=== PATIENT | male | born 1930 | race Caucasian/White ===

== ENCOUNTER 2017-08-11 10:37 | Inpatient (IN) ==
[2017-08-05 18:55] LABS: Blood Urea Nitrogen 19 mg/dl (8-23)
[2017-08-05 19:15] LABS: Appearance,Urine CLEAR; Bilirubin,Urine NEG (NEG); Color,Urine YELLOW; Glucose,Urine (UA) NEGATIVE (NEG); Leukocyte Esterase,Urine NEG /uL (NEG); Nitrate,Urine NEG (NEG); Protein,Urine NEG (NEG); Specific Gravity,Urine 1.025 (1.000-1.035); Urine Blood NEG mg/dL (<0.03); Urobilinogen,Urine NEG (NEG)
[~2017-08-11 10:37] MED LIST: CELECOXIB 200 MG CAPSULE PO SCH; GABAPENTIN 100 MG CAPSULE PO SCH; ceFAZolin 1 GM VIAL IV SCH; oxyCODONE 10 MG TAB.ER.12H PO SCH
[2017-08-11] MEDS ORDERED: MIDAZOLAM 2 MG/2 ML VIAL IV ONE (14:45)
[2017-08-11] MEDS ORDERED: PROPOFOL 200 MG/20 ML VIAL IV ONE (14:45)
[2017-08-11] MEDS ORDERED: LIDOCAINE HCL/PF 100 MG/5 ML SYRINGE IV ONE (14:45)
[2017-08-11] MEDS ORDERED: SUCCINYLCHOLINE 20 MG/ML ML IV ONE (14:45)
[2017-08-11] MEDS ORDERED: DEXAMETHASONE 10 MG/ML VIAL IV ONE (14:45)
[2017-08-11] MEDS ORDERED: ONDANSETRON 4 MG/2 ML VIAL IV ONE (14:45)
[2017-08-11] MEDS ORDERED: TRANEXAMIC ACID 1,000 MG/10 ML VIAL IV ONE ×2 (14:45→16:46)
[2017-08-11] MEDS ORDERED: ONDANSETRON 4 MG/2 ML VIAL IV PRN ×2 (16:13→16:46)
[2017-08-11] MEDS ORDERED: IPRATROPIUM/ALBUTEROL 3 ML AMPUL.NEB NEB PRN (16:13)
[2017-08-11] MEDS ORDERED: ACETAMINOPHEN 1,000 MG/100 ML BOTTLE IV ONE (16:13)
[2017-08-11] MEDS ORDERED: PROMETHAZINE 25 MG/ML VIAL IV PRN (16:13)
[2017-08-11] MEDS ORDERED: MEPERIDINE 25 MG/ML SYRINGE IV PRN (16:13)
[2017-08-11] MEDS ORDERED: LACTATED RINGERS 250 ML IV PRN (16:13)
[2017-08-11] MEDS ORDERED: NALOXONE HCL 0.4 MG/ML VIAL IV PRN (16:13)
[2017-08-11] MEDS ORDERED: HYDROmorphone 2 MG/ML SYRINGE IV PRN ×2 (16:13→16:46)
[2017-08-11] MEDS ORDERED: fentaNYL 100 MCG/2 ML VIAL IV PRN (16:13)
[2017-08-11] MEDS ORDERED: MEPERIDINE 50 MG/ML SYRINGE IM PRN (16:13)
[2017-08-11] MEDS ORDERED: PROMETHAZINE 25 MG/ML VIAL IM PRN (16:13)
[2017-08-11] MEDS ORDERED: ePHEDrine 50 MG/ML AMPUL IV PRN (16:13)
[2017-08-11] MEDS ORDERED: FLUMAZENIL 0.1 MG/ML ML IV PRN (16:13)
[2017-08-11] MEDS ORDERED: BENZOCAINE/MENTHOL 1 LOZENGE PO PRN ×2 (16:13→16:46)
[2017-08-11] MEDS ORDERED: diphenhydrAMINE 50 MG/ML VIAL IV PRN (16:13)
[2017-08-11] MEDS ORDERED: LACTATED RINGERS 1,000 ML IV SCH (16:15)
[2017-08-11] MEDS ORDERED: BISACODYL 10 MG SUPP.RECT PR PRN (16:46)
[2017-08-11] MEDS ORDERED: ONDANSETRON ODT 4 MG TABLET SL PRN (16:46)
[2017-08-11] MEDS ORDERED: KETOROLAC 15 MG/ML VIAL IV PRN (16:46)
[2017-08-11] MEDS ORDERED: FLEETS ADULT ENEMA PR PRN (16:46)
--- NOTE | 2017-08-11 16:46 | Brief Operative Note ---
Date of procedure: 08/11/17 Pre-op diagnosis: left hip avn, oa Post-op diagnosis: same Procedure: left total hip arthroplasty Grafts/Implants: Yes Anesthesia: spinal Complications: none Surgeon: Sergio Gillis Carousel Operator: Edith Medina Estimated blood loss (cc): 150 Specimens Removed/Pathology: other (fresh frozen x 2) Condition: stable Disposition: PACU
[2017-08-11] MEDS ORDERED: GENTAMICIN SULFATE 800 MG/20 ML VIAL IR ONE (16:59)
--- NOTE | 2017-08-11 17:59 | XRay Report ---
HISTORY: Reason for Exam:Post-Op Total Hip FINDINGS: There is a well-positioned left total hip prosthesis. No fracture is present. Mild osteoarthritis is present in the right hip. There is moderate arthritis throughout the visualized portion of the lumbar spine. IMPRESSION: Well-positioned left hip prosthesis Interpreted and Authenticated by: Bret Oshea 08/11/17
[2017-08-11] MEDS: 0.9 % SODIUM CHLORIDE 1,000 ML IV SCH (19:32)
[2017-08-11] MEDS: metFORMIN 500 MG TABLET PO SCH ×2 (19:33→20:42)
[2017-08-11] MEDS: DOCUSATE SODIUM 100 MG CAPSULE PO SCH (20:42)
[2017-08-11] MEDS: ATORVASTATIN 20 MG TABLET PO SCH (20:42)
[2017-08-11] MEDS: SENNOSIDES 1 TABLET PO SCH (20:42)
[2017-08-11] MEDS: ASPIRIN 325 MG ENTERIC COATED TABLET PO SCH (20:42)
[2017-08-11] MEDS: GABAPENTIN 100 MG CAPSULE PO SCH (20:44)
[2017-08-11] MEDS: 0.9 % SODIUM CHLORIDE 10 ML SYRINGE IV SCH (20:47)
[2017-08-11] MEDS: ceFAZolin 1 GM VIAL IV SCH (22:36)
[2017-08-11] MEDS: METOPROLOL SUCCINATE 25 MG TAB.XL.24H PO SCH (22:42)
[2017-08-12] MEDS: 0.9 % SODIUM CHLORIDE 10 ML SYRINGE IV SCH ×3 (04:37→20:48)
[2017-08-12] MEDS: 0.9 % SODIUM CHLORIDE 1,000 ML IV SCH ×3 (05:05→23:45)
[2017-08-12] MEDS: ceFAZolin 1 GM VIAL IV SCH (07:06)
--- NOTE | 2017-08-12 07:17 | Orthopedic Progress Note ---
Subjective Patient information: Note initiated : 08/12/17 at 7:15 am Service Date, if different from initiated Date: [] Patient: Buddy Marcus 87 y/o M admitted on 08/11/17 for Arthroplasty Hip Total - Left. Chief Complaint: [] Interval history: doing well. pain better. weakness noted Objective Vital signs: Vital Signs Temp Pulse Resp BP BP Pulse Ox 08/12/17 04:00 98.0 F 81 20 132/72 95 08/12/17 00:00 97.3 F 80 20 114/67 97 08/11/17 23:09 95 08/11/17 20:34 79 102/62 95 08/11/17 19:49 86 98/66 94 08/11/17 19:40 98 08/11/17 19:18 68 107/62 99 08/11/17 18:48 82 107/64 97 08/11/17 18:33 74 127/74 97 08/11/17 18:18 78 111/57 95 08/11/17 18:03 83 121/66 89 L 08/11/17 17:55 97.6 F 83 16 106/63 95 08/11/17 17:46 95 H 20 107/59 95 08/11/17 17:41 85 17 111/61 95 08/11/17 17:36 86 17 101/57 96 08/11/17 17:31 92 H 18 104/59 96 08/11/17 17:26 90 17 101/56 97 08/11/17 17:21 91 H 18 103/62 97 08/11/17 17:16 97.6 F 91 H 12 90/51 97 08/11/17 12:00 98.1 F 16 169/73 95 Intake and Output 08/11/17 08/12/17 08/12/17 21:59 05:59 13:59 Intake Total 2620 / 2620 1005 / 1005 640 / 640 Output Total 200 / 200 150 / 150 Balance 2420 / 2420 855 / 855 640 / 640 Intake: IV 1700 / 1700 955 / 955 Sodium Chloride 0.9% 1,000 ml @ 955 / 955 100 mls/hr IV .Q10H [facility] Rx#: [id number] Oral 920 / 920 50 / 50 640 / 640 Output: Void Amount 150 / 150 Estimated Blood Loss 200 / 200 Other: Meal Nourishment/Supplement Percent of Meal Consumed 100% Feeding Ability Assist with Tray Set Up Weight 201 lb 8 oz Intake & Output: Intake & Output 08/11/17 08/12/17 08/12/17 21:59 05:59 13:59 Intake Total 2620 / 2620 1005 / 1005 640 / 640 Output Total 200 / 200 150 / 150 Balance 2420 / 2420 855 / 855 640 / 640 Weight 201 lb 8 oz Intake: IV 1700 / 1700 955 / 955 Sodium Chloride 0.9% 1,000 ml @ 955 / 955 100 mls/hr IV .Q10H [facility] Rx#: [id number] Oral 920 / 920 50 / 50 640 / 640 Output: Void Amount 150 / 150 Estimated Blood Loss 200 / 200 Other: Meal Nourishment/Supplement Percent of Meal Consumed 100% Feeding Ability Assist with Tray Set Up Incision: Yes healing Incision clean and dry: Yes Dressing: Yes clean, Yes dry, Yes intact Weight bearing status: full Neurological exam IM: Yes abnormal gait, Yes alert, Yes oriented X3, Yes neurovascular intact Extremities exam IM: No calf tenderness, Yes Foot pink and warm, Yes neurovascular intact - Labs CBC & BMP: 08/12/17 04:54 08/05/17 15:20 Labs: 08/12/17 04:54 Hgb 12.2 L Hct 36.6 L Assessment and Plan (1) Avascular necrosis of bone of hip pod 1 s/p left charles wbat posterior hip precautions pain control pt home vs rehab depending on how he progresses Status: Acute
--- NOTE | 2017-08-12 07:45 | Operative Note ---
DATE OF OPERATION: 08/11/2017 PREOPERATIVE DIAGNOSIS: Avascular necrosis, left hip. POSTOPERATIVE DIAGNOSIS: Avascular necrosis, left hip. PROCEDURE: Left total hip arthroplasty. SURGEON: Radha Gillis M.D. CDL PROGRAM COORDINATOR SURGEON: Edith Medina PA-C ANESTHESIA: Spinal with LMA assist. ESTIMATED BLOOD LOSS: 150 mL. COMPLICATIONS: None noted. SPECIMENS REMOVED: Frozen x2 with less than 1 WBC/HPF. DRAINS: None. IMPLANTS: DePuy Orma Gription acetabular shell 58 mm, DePuy [place] hole eliminator PS, DePuy Orma cancellous bone screw 6.5 x 30, DePuy AltrX polyethylene acetabular liner lipped 38 x 56, DePuy Tri-Lock BPS femoral stem size 6 high, DePuy Biolox Delta ceramic femoral head +12 36 mm diameter. INDICATIONS: The patient has had worsening pain in the hip that has failed conservative treatment. Radiographs have confirmed avascular necrosis with complete dissolution of the femoral head. After a long discussion about treatment options, the patient elected to proceed with a hip arthroplasty. The risks and benefits were discussed with the patient in detail including, but not limited to, the risks of anesthesia, problems with the heart or lungs related to anesthesia, infection, compromise or injury to the nerves and blood vessels, deep venous thrombosis, pulmonary embolism, pneumonia, continued pain after surgery, worsening pain or symptoms after surgery, swelling, loss of motion, instability, leg length discrepancy, and need for repeat surgery. DESCRIPTION OF PROCEDURE: The patient was seen in pre-anesthesia waiting room where all questions were answered and the correct side and site were identified and marked. The patient was then brought to the operating room and administered the anesthetic and given preoperative antibiotics. A time-out was then called. The patient was placed in the lateral decubitus position with all prominences well-padded using the Rainer frame and the extremity was prepped and draped in the usual sterile fashion. Anesthesia; gave the patient 1 gm of tranexamic acid via an intravenous route. A standard posterior approach was made. We dissected through the skin and subcutaneous tissue to the deep fascia. The deep fascia was split in line with the incision and a Charnley retractor was placed. We exposed, tagged, and incised the short external rotators and piriformis tendon and retracted them posteriorly to help protect the sciatic nerve which was palpated throughout the case. We then performed a T-capsulotomy and tagged the capsule edges. Prior to dislocating the hip, we set a length and offset gauge from a Steinmann pin in the iliac wing to a de on the greater trochanter. The hip was then dislocated and a femoral neck osteotomy was performed to the presurgical templated level off the lesser trochanter. The head was removed and sized. It was removed in pieces as there was severe avascular necrosis. I took two frozen specimens and sent them to the pathologist, which demonstrated less than 1 WBC/HPF, and it did not appear to be grossly infected so we proceeded with the surgical intervention. We next turned our attention to the acetabulum. Retractors were placed for optimal visualization. A complete labral excision was performed. The capsule was preserved for later closure. We began reaming using anatomic landmarks with the DePuy Orma acetabular system. We medialized the cup and reamed up to provide good fill and approximately 20 degrees of anteversion and 45 degrees of abduction, we impacted the DePuy Orma cup and placed a cancellous screw in the posterior-superior quadrant. Osteophytes were removed from around the shell. We placed the trial liner and turned our attention to the femur. We placed retractors for visualization, internally rotated the femur, and established intramedullary access. The femoral axis was lateralized with the box osteotome and then reamed up in a standard fashion. We broached using the DePuy [place] stem to a stable platform medial, lateral, and rotationally with the appropriate version. We then performed a calcar reaming off the broach. Trials were then placed and optimized for leg length and stability. We used the leg length and offset guide to confirm our trials. Best stability, length, and offset characteristics were obtained with these sizes. We removed all trials and impacted the polyethylene acetabular liner in a standard fashion after a thorough irrigation. We then impacted the femoral stem to its broached location using a fourth-generation cementing technique and placed the head. Final reduction was performed. Again, good stability, leg length, and offset characteristics were noted. We irrigated with three liters of antibiotic saline. We closed the capsule with #2 FiberWire. We closed the fascia with a combination of looped #0 Maxon and #0 Vicryl. We closed the subcutaneous tissue and skin in layers out to monika in the skin. A sterile pressure dressing and abduction wedge were applied. All needle and sponge counts were correct. The patient was transferred to the recovery room in stable condition. MARICRUZ:mary Job ID: [id number] Doc ID: [id number] Radha Gillis MD
[2017-08-12] MEDS: metFORMIN 500 MG TABLET PO SCH ×2 (08:18→17:39)
[2017-08-12] MEDS: ASPIRIN 325 MG ENTERIC COATED TABLET PO SCH ×2 (09:10→20:48)
[2017-08-12] MEDS: ALLOPURINOL 300 MG TABLET PO SCH (09:10)
[2017-08-12] MEDS: METOPROLOL SUCCINATE 25 MG TAB.XL.24H PO SCH ×2 (09:10→20:48)
[2017-08-12] MEDS: DOCUSATE SODIUM 100 MG CAPSULE PO SCH ×2 (09:10→20:47)
[2017-08-12] MEDS: GABAPENTIN 100 MG CAPSULE PO SCH ×2 (09:11→20:48)
--- NOTE | 2017-08-12 13:58 | Surgical Pathology Report ---
HISTOLOGY SPECIMEN MICROSCOPIC DIAGNOSIS SPECIMEN A - SOFT TISSUE, LEFT HIP CAPSULE, EXCISION: -- FIBROTIC SOFT TISSUE WITH CHRONIC INFLAMMATION. -- NO NEUTROPHILIC INFLAMMATION IDENTIFIED. SPECIMEN B - SOFT TISSUE, FEMORAL HEAD, EXCISION: -- FIBROADIPOSE TISSUE WITH MINIMAL CHRONIC INFLAMMATION. -- NO NEUTROPHILIC INFLAMMATION IDENTIFIED. (DMT:paulino) INTRAOPERATIVE CONSULTATION FROZEN SECTION DIAGNOSES (Performed at [place], [place]) FSA - SOFT TISSUE, CAPSULE, LEFT HIP, EXCISION: -- LESS THAN ONE NEUTROPHIL/hpf. FSB - SOFT TISSUE, FEMORAL HEAD, LEFT HIP, EXCISION: -- LESS THAN ONE NEUTROPHIL/hpf. (DMT:perfecto) PROCEDURAL IMPRESSION Left bilateral primary osteoarthritis of hip; osteonecrosis left hip. GROSS DESCRIPTION Specimen A: Received fresh for frozen section consultation labeled capsule left hip, is a 2.2 x 1.5 x 0.5 cm zuniga-pink soft tissue fragment. The fragment is serially sectioned and entirely submitted for frozen section consultation and resubmitted as FSA. Specimen B: Received fresh for frozen section consultation labeled femoral head left hip, is a 1.3 x 0.4 x 0.4 cm aggregate of soft tissue with a minimal amount of bone. The bone is removed and the soft tissue is entirely submitted for frozen section consultation and resubmitted as FSB. (DMT:paulino) Electronically Signed by: Paul Martinez M.D.
[2017-08-12] MEDS: SENNOSIDES 1 TABLET PO SCH (20:47)
[2017-08-12] MEDS: ATORVASTATIN 20 MG TABLET PO SCH (20:48)
[2017-08-12] MEDS: METHOCARBAMOL 750 MG TABLET PO PRN (20:48)
--- NOTE | 2017-08-12 21:29 | Internal Medicine Consult Note ---
Medical - CN: HPI - Data of Consult Patient: new to practice Consult date: 08/12/17 Requesting Physician: Sergio Gillis Primary Care Provider: Prasanna Cerna Family Provider: Prasanna Cerna - Consult Narrative History of present illness: Mr. Marcus is a 87 year old M I was asked to see this patient this evening by Dr. Gillis, regarding borderline O2 saturations and low urine output. Patient is status post total hip replacement yesterday. This surgery went well. It looks like he is about 5 L ahead on fluid. The patient notes he has been feeling fine until today. Today he noted increased dyspnea with exertion during physical therapy, and consents that he is wheezing. He says he has had a cough for about a week, and just in the last couple of days started to cough up yellowish phlegm. Otherwise, he denies fever chills, headaches or dizziness, new eye or ear symptoms, sore throat, swollen glands. He denies chest pain or palpitations, abdominal pain, nausea or vomiting, diarrhea or constipation, dysuria. Past medical history: Avascular necrosis of the hip Colon cancer Type 2 diabetes Gout Coronary artery disease, status post DE and 2 stents 1999 62,007 History of atrial fibrillation hyperlipidemia Diabetic peripheral neuropathy Past surgical history cardiac stents, Right knee arthroscopy, Shoulder surgery Home medications: Allopurinol 300 mg daily Aspirin 81 mg daily Lipitor 20 mg daily Gabapentin 100 mg twice daily [place] 5/325 1-2 every 6 hours as needed Metformin 1000 mg p.o. twice daily Metoprolol succinate 25 mg p.o. twice daily Allergies: No known drug allergies Social history: The patient lives alone. He says his son lives nearby. He smoked from the age of 14 until 43, and then quit. He does not use alcohol or drugs. Family history: Patient believes his father with a brain aneurysm. He cannot recall either his mother's or his siblings' health. Cardiology records indicate family history of Alzheimer's disease, suicide, hyperlipidemia, coronary disease, stroke CC: Sergio Gillis Medical - CN: Meds Home Medications Medication Instructions Recorded Confirmed Type Allopurinol [Zyloprim] 300 mg PO DAILY 08/05/17 08/11/17 History Aspirin [Ecotrin] 81 mg PO DAILY 08/05/17 08/11/17 History Atorvastatin [Lipitor] 20 mg PO DAILY 08/05/17 08/11/17 History Gabapentin [Neurontin] 100 mg PO BID 08/05/17 08/11/17 History HYDROcodone/APAP 5/325MG [[place] 1 - 2 tab PO Q6HP PRN 08/05/17 08/11/17 History 5/325Mg] Metoprolol Succinate 25 mg PO BID 08/05/17 08/11/17 History metFORMIN [Glucophage] 1,000 mg PO BIDCC 08/05/17 08/11/17 History Allergies Allergy/AdvReac Type Severity Reaction Status Date / Time No Known Drug Allergies Allergy Verified 08/11/17 11:49 Medical - CN: Exam - Constitutional Vitals: Temp Pulse Resp BP Pulse Ox 98.0 F 90 18 138/70 97 08/12/17 16:00 08/12/17 16:00 08/12/17 16:00 08/12/17 16:00 08/12/17 16:00 On exam, he is a well-developed well-nourished elderly man in no acute distress. Head: Normocephalic, atraumatic. Eyes: PERRLA, EOMI, anicteric. TMs and canals are clear. Pharynx is clear. He has full upper and lower plates. Neck appears supple, without obvious JVD, thyromegaly, bruits, lymph nodes. Cardiac exam shows regular rate and rhythm with normal S1 and S2. I do not appreciate murmurs, rubs, gallops. Lungs: He has diffuse soft expiratory wheezes heard throughout all lung estrada. I do not appreciate definite crackles or rhonchi. Abdomen is soft and nontender with no obvious masses. Bowel sounds are active. Extremities: Show perhaps a trace edema at the ankles. No cyanosis or clubbing is noted. Neurologic exam: Is grossly nonfocal. Medical - CN: Result - Labs CBC & Chem 7: 08/13/17 05:04 08/13/17 05:04 Labs: Short CBC 08/12/17 Range/Units 04:54 Hgb 12.2 L (13.5-16.5) g/dL Hct 36.6 L (41.0-55.0) % August 12: Chest x-ray: Shows mild cardiomegaly, and evidence of pulmonary vascular congestion. There is also evidence of bilateral rotator cuff tears. EKG: Shows normal sinus rhythm at a rate of 90, incomplete left bundle branch block. No significant change from August 11, 2017 . CBC: White blood cell count 8000, hemoglobin 11.4, hematocrit 34, platelets 362, 000. D-dimer is elevated at 1.38 next Chemistry panel: Sodium is low at 126, potassium 4.4, chloride 92, bicarb 21, anion gap 13, BUN 23, creatinine 0.9, glucose 143 Phosphorus is low at 2.1, magnesium low at 1.5, total protein is low at 5.8, albumin low at 2.8 BNP is elevated at 2694 August 11: EKG: Shows normal sinus rhythm at a rate of 90, left axis deviation, left anterior fascicular block. No significant change from August 05, 2017. Hematocrit: 45 August 05, 2017: Chemistry panel: Sodium 129, potassium 4.7, chloride 90, CO2 21, anion gap 18, glucose 119 Urinalysis: 5 ketones, otherwise normal : Chest x-ray: Reported as showing moderate cardiomegaly. No acute changes. Next Hip x-ray: Showed marked collapse and deformity of the left femoral head, possible avascular necrosis. August 04: CBC: White blood cell count 7000, hemoglobin 13, hematocrit 38, platelets 342, 000 Medical - CN: A/P (1) Dyspnea Status: Acute (2) Coronary artery disease Status: Chronic (3) History of coronary artery stent placement Status: Chronic (4) History of atrial fibrillation Status: Chronic (5) Type 2 diabetes mellitus Status: Chronic (6) Hyperlipidemia Status: Chronic - Narrative A/P Narrative: #1. Cardiopulmonary. Patient has dyspnea since his surgery. He is about 5 L ahead on fluids. I suspect his main problem is volume overload. However, he is also at risk for CHF, and may have a respiratory infection as well. He is also at risk for recurrent coronary events. -He was given IV Lasix empirically. -Albuterol nebs as needed. -EKG appears unchanged. Troponin is normal. -BNP is elevated, consistent with probable underlying CHF. D-dimer is elevated , but that would be expected in the setting of recent surgery. - -Continue aspirin, Lipitor, metoprolol. -Discontinue Toradol, as this is a high risk medication for him. History of atrial fibrillation. EKGs here which seemed to show sinus rhythm. -Chads 2 vascular score is 3, and cardiology did recommend anticoagulation previously, but patient was reluctant. Continue aspirin for now. He should follow-up with his critical care nurse, as this should probably be reconsidered. 2. Type 2 diabetes. -Continue gabapentin for peripheral neuropathy. -Continue metformin, Accu-Cheks, sliding scale insulin. 3. Hyperlipidemia. 4. CODE STATUS: Full code. 5. DVT prophylaxis: Patient is on high-dose aspirin twice daily, plus early ambulation. Cherelle's visit took approximately 55 minutes, to review his old records, interview and examine him, order and review test, and write orders.
[2017-08-12] MEDS ORDERED: FUROSEMIDE 20 MG/2 ML VIAL IV ONE (21:33)
[2017-08-12] MEDS ORDERED: ALBUTEROL SULFATE 2.5 MG/3 ML NEBULIZER NEB PRN (21:56)
[2017-08-12] MEDS ORDERED: ALBUTEROL SULFATE 2.5 MG/3 ML NEBULIZER NEB ONE (21:56)
[2017-08-12 22:35] LABS: Basophils # (Auto) 0 K/mcL (0.0-0.3); Basophils % (Auto) 0.3 % (0.0-2.0); Eosinophils # (Auto) 0.1 K/mcL (0.0-0.7); Eosinophils % (Auto) 1.3 % (0.0-7.0); Granulocytes % (Auto) 80.2 % (38.0-78.0); Lymphocytes # (Auto) 0.8 K/mcL (1.5-4.8); Lymphocytes % (Auto) 9.8 % (15.5-49.0); Mean Corpuscular HGB Conc 32.9 g/dL (31.0-36.0); Mean Corpuscular Hemoglobin 30.9 pg (26.0-34.0); Monocytes # (Auto) 0.7 K/mcL (0.1-0.9); Monocytes % (Auto) 8.4 % (1.0-12.0); Platelet Count 362 K/mcL (140-440); RBC 3.69 M/mcL (4.50-5.90); Red Cell Distribution Width 12.8 % (11.5-14.5)
[2017-08-12 23:00] LABS: ALT/SGPT 9 U/l (0-40); Albumin 2.8 gm/dL (3.2-5.2); Albumin/Globulin Ratio 0.9 (1.0-2.3); Alkaline Phosphatase 87 U/L (39-117); Bilirubin,Direct < 0.2 mg/dL (0.0-0.3); Blood Urea Nitrogen 23 mg/dl (8-23); Gamma Glutamyl Transpeptidase 24 U/L (8-61); Magnesium 1.5 mg/dL (1.6-2.5); Uric Acid 4.3 mg/dL (2.5-8.0)
[2017-08-13] MEDS ORDERED: MAGNESIUM SULFATE 24.36 MEQ in DEXTROSE 5% IN WATER 50 ML IV ONE (01:13)
[2017-08-13] MEDS ORDERED: MAGNESIUM SULFATE 8.12 MEQ/2 ML VIAL ONE (02:25)
[2017-08-13] MEDS: 0.9 % SODIUM CHLORIDE 10 ML SYRINGE IV SCH ×4 (02:37→20:03)
[2017-08-13] MEDS: HYDROcodone/APAP 10/325MG TABLET PO PRN ×3 (02:40→12:17)
--- NOTE | 2017-08-13 06:03 | Orthopedic Progress Note ---
Subjective Patient information: Note initiated : 08/13/17 at 6:01 am Service Date, if different from initiated Date: [] Patient: Buddy Marcus 87 y/o M admitted on 08/11/17 for Arthroplasty Hip Total - Left. Chief Complaint: [POD #1 s/p left NASRA Patient is POD #1 s/p left NASRA. He is doing very well this morning and denies significant pain in his hip. He was having a moist cough which was addressed by the hospitalist with Ban. His O2 sats were monitored over night and have been stable for the duration. He was also having low urine output which has since reversed. He reports improvement in his cough. He denies chest pain, shortness of breath, calf pain, numbness, tingling or weakness in bilateral lower extremities. He has no questions or concerns this morning.] Objective Vital signs: Vital Signs Temp Pulse Pulse Pulse Resp BP Pulse Ox 08/13/17 03:09 98.2 F 82 16 122/73 94 08/13/17 00:00 98.2 F 87 16 121/69 96 08/12/17 23:35 83 18 08/12/17 20:00 98.0 F 83 16 113/67 94 08/12/17 16:00 98.0 F 90 18 138/70 97 08/12/17 12:00 97.7 F 103 H 20 134/68 97 08/12/17 11:05 98.5 F 80 16 112/80 95 08/12/17 07:25 74 16 95 08/12/17 07:23 98.1 F 71 74 16 122/72 95 Intake and Output 08/12/17 08/13/17 08/13/17 21:59 05:59 13:59 Intake Total 2148 / 2148 120 / 120 Output Total 975 / 975 2250 / 2250 Balance 1173 / 1173 -2130 / -2130 Intake: IV 1348 / 1348 Sodium Chloride 0.9% 1,000 ml @ 1348 / 1348 100 mls/hr IV .Q10H [facility] Rx#: [id number] Oral 800 / 800 120 / 120 Output: Void Amount 975 / 975 2250 / 2250 Other: Meal Dinner Nourishment/Supplement Percent of Meal Consumed 50% 100% Feeding Ability Assist with Tray Set Up Independent Weight 224 lb 220 lb Intake & Output: Intake & Output 08/12/17 08/13/17 08/13/17 21:59 05:59 13:59 Intake Total 2148 / 2148 120 / 120 Output Total 975 / 975 2250 / 2250 Balance 1173 / 1173 -2130 / -2130 Weight 224 lb 220 lb Intake: IV 1348 / 1348 Sodium Chloride 0.9% 1,000 ml @ 1348 / 1348 100 mls/hr IV .Q10H [facility] Rx#: [id number] Oral 800 / 800 120 / 120 Output: Void Amount 975 / 975 2250 / 2250 Other: Meal Dinner Nourishment/Supplement Percent of Meal Consumed 50% 100% Feeding Ability Assist with Tray Set Up Independent Incision: Yes healing, Yes clean and dry Incision clean and dry: Yes Dressing: Yes clean, Yes dry, Yes intact Weight bearing status: as tolerated Range of motion: full AROM b/l knees, ankles, toes in extension and flexion Neurological exam IM: Yes alert, Yes oriented X3, Yes neurovascular intact Extremities exam IM: No calf tenderness, Yes full ROM, Yes normal capillary refill, Yes normal inspection, No Kiara's sign, Yes Foot pink and warm, Yes neurovascular intact - Periperhal Pulses Peripheral pulses: 2+: dorsalis pedis (L), dorsalis pedis (R), posterior tibialis (L), posterior tibialis (R) - Labs CBC & BMP: 08/12/17 21:50 08/12/17 21:50 Labs: Orthopedic Labs 08/12/17 21:50 D-Dimer 1.38 H 08/13/17 08/12/17 08/12/17 05:04 21:50 04:54 Hgb Pending 11.4 L 12.2 L Hct Pending 34.7 L 36.6 L Assessment and Plan (1) Avascular necrosis of bone of hip Assessment: POD #1 s/p left NASRA Plan: -Pain control -continue DVT prophylaxis with ASA -continue diuresis/cardiopulm management per hospitalist -PT/OT in hospital -WBAT with assistive device -dressing change today with gauze/metaphor over Dermabond -d/c planning to [place] swing bed Thursday08/13/2017 pending hospitalist sign off Status: Acute
[2017-08-13 06:38] LABS: Basophils # (Auto) 0 K/mcL (0.0-0.3); Basophils % (Auto) 0.2 % (0.0-2.0); Eosinophils # (Auto) 0.1 K/mcL (0.0-0.7); Eosinophils % (Auto) 1.4 % (0.0-7.0); Granulocytes % (Auto) 82.7 % (38.0-78.0); Lymphocytes # (Auto) 0.8 K/mcL (1.5-4.8); Lymphocytes % (Auto) 8.5 % (15.5-49.0); Mean Cell Volume 96.7 fL (80.0-100.0); Mean Corpuscular Hemoglobin 31.9 pg (26.0-34.0); Monocytes # (Auto) 0.6 K/mcL (0.1-0.9); Monocytes % (Auto) 7.2 % (1.0-12.0); Platelet Count 323 K/mcL (140-440); RBC 3.63 M/mcL (4.50-5.90); Red Cell Distribution Width 13.5 % (11.5-14.5)
[2017-08-13 06:58] LABS: ALT/SGPT 8 U/l (0-40); Alkaline Phosphatase 83 U/L (39-117); Bilirubin,Direct < 0.2 mg/dL (0.0-0.3); Blood Urea Nitrogen 22 mg/dl (8-23); Gamma Glutamyl Transpeptidase 27 U/L (8-61); Magnesium 2.1 mg/dL (1.6-2.5); Uric Acid 4.3 mg/dL (2.5-8.0)
--- NOTE | 2017-08-13 07:50 | XRay Report ---
HISTORY: Reason for Exam:post op SOB FINDINGS: Heart is mildly enlarged and has increased in size since 11/30/06. In addition there are now increased interstitial lung markings bilaterally and prominence of the central hilar vessels. No consolidating infiltrate is present. Lung volumes are normal. No pleural effusion has developed. Distal ends of both clavicles have been resected. Humeral heads are subluxed superiorly which is indirect evidence of bilateral rotator cuff tears. IMPRESSION: Cardiomegaly with pulmonary vascular congestion Interpreted and Authenticated by: Bret Oshea 08/13/17
[2017-08-13] MEDS: GABAPENTIN 100 MG CAPSULE PO SCH ×2 (08:25→20:03)
[2017-08-13] MEDS: ALLOPURINOL 300 MG TABLET PO SCH (08:25)
[2017-08-13] MEDS: metFORMIN 500 MG TABLET PO SCH ×2 (08:25→17:20)
[2017-08-13] MEDS: 0.9 % SODIUM CHLORIDE 1,000 ML IV SCH (08:26)
[2017-08-13] MEDS: METOPROLOL SUCCINATE 25 MG TAB.XL.24H PO SCH ×2 (08:26→20:02)
[2017-08-13] MEDS: DOCUSATE SODIUM 100 MG CAPSULE PO SCH ×2 (08:26→20:02)
[2017-08-13] MEDS: ASPIRIN 325 MG ENTERIC COATED TABLET PO SCH ×2 (08:26→20:02)
[2017-08-13] MEDS: POLYETHYLENE GLYCOL 3350 17 GM PACKET PO PRN (08:29)
--- NOTE | 2017-08-13 11:00 | Internal Med Progress Note ---
Medical - PN: Subj Patient information: Note initiated : 08/13/17 at 11:00 am Service Date, if different from initiated Date: [] Patient: Buddy Marcus 87 y/o M admitted on 08/11/17 for Arthroplasty Hip Total - Left. Chief Complaint: [] Interval history: August 12, 2017: History of present illness: Mr. Marcus is a 87 year old M I was asked to see this patient this evening by Dr. Gillis, regarding borderline O2 saturations and low urine output. Patient is status post total hip replacement yesterday. This surgery went well. It looks like he is about 5 L ahead on fluid. The patient notes he has been feeling fine until today. Today he noted increased dyspnea with exertion during physical therapy, and consents that he is wheezing. He says he has had a cough for about a week, and just in the last couple of days started to cough up yellowish phlegm. Otherwise, he denies fever chills, headaches or dizziness, new eye or ear symptoms, sore throat, swollen glands. He denies chest pain or palpitations, abdominal pain, nausea or vomiting, diarrhea or constipation, dysuria. August 13: Patient had dyspnea yesterday, associated with low O2 saturations and low urine output. He was given IV Lasix, and experienced a brisk diuresis. Preliminary workup showed no evidence of acute ID. Working diagnosis is acute volume overload with underlying CHF. I did order echocardiogram, which does show systolic dysfunction with ejection fraction of approximately 40%. Urine output is slowing down again today. Patient is still about 3900 mL ahead on fluids. Today, he says he is feeling much better. He has much less dyspnea with exertion. He does note that he has had some chronic dyspnea with exertion at home, to a much milder degree, for the last couple of years. He otherwise denies fever or chills, dizziness, chest pain or palpitations, GI or symptoms. - Constitutional Vitals: Vital Signs Temp Pulse Resp BP Pulse Ox 98.2 F 82 16 128/76 94 08/13/17 07:55 08/13/17 03:09 08/13/17 07:55 08/13/17 07:55 08/13/17 07:55 Period Temp Pulse Resp BP Sys/Berg Pulse Ox Last 24 Hr 97.7 F-98.5 F 80-103 16-20 112-138/67-80 94-97 Intake and Output 08/12/17 08/13/17 08/13/17 21:59 05:59 13:59 Intake Total 2148 / 2148 120 / 120 600 / 600 Output Total 975 / 975 2250 / 2250 175 / 175 Balance 1173 / 1173 -2130 / -2130 425 / 425 Weight 224 lb 220 lb Intake & Output: Intake & Output 08/12/17 08/13/17 08/13/17 21:59 05:59 13:59 Intake Total 2148 / 2148 120 / 120 600 / 600 Output Total 975 / 975 2250 / 2250 175 / 175 Balance 1173 / 1173 -2130 / -2130 425 / 425 Weight 224 lb 220 lb Intake: IV 1348 / 1348 Sodium Chloride 0.9% 1,000 ml @ 1348 / 1348 100 mls/hr IV .Q10H JUAN F Rx#: [id number] Oral 800 / 800 120 / 120 600 / 600 Output: Void Amount 975 / 975 2250 / 2250 175 / 175 Other: Meal Dinner Nourishment/Supplement Breakfast Percent of Meal Consumed 50% 100% 100% Feeding Ability Assist with Tray Set Up Independent On exam, he is sitting up in a chair, in no acute distress. Neck is supple without obvious JVD. Cardiac exam shows regular rate and rhythm. Lungs are fairly clear to auscultation. Abdomen is soft and nontender. Extremities show only trace edema. Neurologic exam: Is grossly nonfocal. Medical - PN: Obj Da - Labs CBC & Chem 7: 08/13/17 05:04 08/13/17 05:04 Labs: Abnormal Lab Results 08/13/17 08/13/17 08/12/17 05:04 05:04 21:50 RBC 3.63 L Hgb 11.6 L Hct 35.1 L Gran % 82.7 H Lymph % (Auto) 8.5 L Lymph # (Auto) 0.8 L D-Dimer POC Sodium Sodium 129 L 126 L Chloride 94 L 92 L Carbon Dioxide 21 L Glucose 147 H 143 H POC Glucose Phosphorus 2.4 L 2.1 L Magnesium 1.5 L NT-Pro-B Natriuret Pep 2694.0 H Total Protein 5.8 L Albumin 3.0 L 2.8 L Albumin/Globulin Ratio 0.9 L 08/12/17 08/12/17 08/12/17 21:50 21:50 04:54 RBC 3.69 L Hgb 11.4 L 12.2 L Hct 34.7 L 36.6 L Gran % 80.2 H Lymph % (Auto) 9.8 L Lymph # (Auto) 0.8 L D-Dimer 1.38 H POC Sodium Sodium Chloride Carbon Dioxide Glucose POC Glucose Phosphorus Magnesium NT-Pro-B Natriuret Pep Total Protein Albumin Albumin/Globulin Ratio 08/11/17 11:15 RBC Hgb Hct Gran % Lymph % (Auto) Lymph # (Auto) D-Dimer POC Sodium 132 L Sodium Chloride Carbon Dioxide Glucose POC Glucose 147 H Phosphorus Magnesium NT-Pro-B Natriuret Pep Total Protein Albumin Albumin/Globulin Ratio August 13: Echocardiogram: Left ventricle shows LVH and mild dilation. Systolic function is decreased with ejection fraction of 35-40%. Grade 2 diastolic dysfunction is also seen. Mild biatrial enlargement. Moderate aortic valve sclerosis. August 12: Chest x-ray: Shows mild cardiomegaly, and evidence of pulmonary vascular congestion. There is also evidence of bilateral rotator cuff tears. EKG: Shows normal sinus rhythm at a rate of 90, incomplete left bundle branch block. No significant change from August 11, 2017 . CBC: White blood cell count 8000, hemoglobin 11.4, hematocrit 34, platelets 362, 000. D-dimer is elevated at 1.38 Troponin: Normal at 0.02 Chemistry panel: Sodium is low at 126, potassium 4.4, chloride 92, bicarb 21, anion gap 13, BUN 23, creatinine 0.9, glucose 143 Phosphorus is low at 2.1, magnesium low at 1.5, total protein is low at 5.8, albumin low at 2.8 BNP is elevated at 2694 August 11: EKG: Shows normal sinus rhythm at a rate of 90, left axis deviation, left anterior fascicular block. No significant change from August 05, 2017. Hematocrit: 45 August 05, 2017: Chemistry panel: Sodium 129, potassium 4.7, chloride 90, CO2 21, anion gap 18, glucose 119 Urinalysis: 5 ketones, otherwise normal : Chest x-ray: Reported as showing moderate cardiomegaly. No acute changes. Next Hip x-ray: Showed marked collapse and deformity of the left femoral head, possible avascular necrosis. August 04: CBC: White blood cell count 7000, hemoglobin 13, hematocrit 38, platelets 342, 000 Meds: Medications Hydrocodone Bitart/Acetaminophen ([place] 10/325mg) 0 tab PO Q4HP PRN PRN Reason: PAIN LEVEL 3-6 Last Admin: 08/13/17 08:31 Dose: 1 tab Albuterol Sulfate (Ventolin) 2.5 mg NEB Q4HP PRN PRN Reason: Shortness Of Breath Allopurinol (Zylopriim) 300 mg PO DAILY [facility] Last Admin: 08/13/17 08:25 Dose: 300 mg Aspirin (Ecotrin) 325 mg PO BID [facility] Last Admin: 08/13/17 08:26 Dose: 325 mg Atorvastatin Calcium (Lipitor) 20 mg PO HS [facility] Last Admin: 08/12/17 20:48 Dose: 20 mg Bisacodyl (Dulcolax) 10 mg MS Q2-3DAYS PRN PRN Reason: Constipation Docusate Sodium (Colace) 100 mg PO BID [facility] Last Admin: 08/13/17 08:26 Dose: 100 mg Gabapentin (Neurontin) 100 mg PO BID [facility] Last Admin: 08/13/17 08:25 Dose: 100 mg Hydromorphone HCl (Dilaudid) 0 mg IV Q2HP PRN PRN Reason: PAIN LEVEL > 6 Sodium Chloride (Sodium Chloride 0.9%) 1,000 mls @ 100 mls/hr IV .Q10H [facility] Last Admin: 08/13/17 08:26 Dose: Not Given Ketorolac Tromethamine (Toradol) 15 mg IV Q6HP PRN PRN Reason: Pain Stop: 08/13/17 16:49 Last Admin: 08/11/17 20:43 Dose: 15 mg Magnesium Hydroxide (Milk Of Magnesia) 30 ml PO BIDP PRN PRN Reason: Constipation Metformin HCl (Glucophage) 1,000 mg PO BIDCC [facility] Last Admin: 08/13/17 08:25 Dose: 1,000 mg Methocarbamol (Robaxin) 750 mg PO Q6HP PRN PRN Reason: Muscle Spasm Last Admin: 08/12/17 20:48 Dose: 750 mg Metoprolol Succinate (Toprol Xl) 25 mg PO BID [facility] Last Admin: 08/13/17 08:26 Dose: 25 mg Ondansetron HCl (Zofran) 4 mg IV Q4HP PRN PRN Reason: Nausea And Vomiting Ondansetron HCl (Zofran Odt) 4 mg SL Q4HP PRN PRN Reason: Nausea And Vomiting Polyethylene Glycol (Miralax) 17 gm PO DAILYP PRN PRN Reason: Constipation Last Admin: 08/13/17 08:29 Dose: 17 gm Senna (Senokot) 2 tab PO HS JUAN F Last Admin: 08/12/17 20:47 Dose: 2 tab Sodium Chloride (Saline Flush) 10 ml IV Q8 JUAN F Last Admin: 08/13/17 05:31 Dose: Not Given Throat Lozenges (Cepacol) 1 lozenge PO PRN PRN PRN Reason: Sore Throat Last Admin: 08/12/17 09:22 Dose: 1 lozenge Medical - PN: A/P - Time Spent With Patient Total time spent is greater than 50% in coordination of care (as documented) at patient's floor/unit and/or counseling patient: 25 - 35 minutes (1) Dyspnea Status: Acute Current Visit: Yes (2) Coronary artery disease Status: Chronic Current Visit: Yes (3) History of coronary artery stent placement Status: Chronic Current Visit: Yes (4) History of atrial fibrillation Status: Chronic Current Visit: Yes (5) Type 2 diabetes mellitus Status: Chronic Current Visit: Yes (6) Hyperlipidemia Status: Chronic Current Visit: Yes - Narrative A/P Narrative: #1. Cardiopulmonary. Patient has had dyspnea since his surgery. He is about 5 L ahead on fluids. I suspect his main problem is volume overload. However, he is also at risk for CHF, and may have a respiratory infection as well. He is also at risk for recurrent coronary events. -Patient responded well to IV Lasix last night, and is less short of breath today, and O2 saturations have improved. However, echocardiogram does show signs of underlying CHF. -He should continue with metoprolol. I will give him another dose of Lasix this evening, to try to get rid of extra fluid. He should also be started on an AVA inhibitor, and a diuretic. He should also have follow-up with his programming intern. Given systolic dysfunction in the setting of history of atrial fibrillation, he should reconsider anticoagulation therapy. -Albuterol nebs as needed. Coronary artery disease. -Continue aspirin, Lipitor, metoprolol. -Discontinue Toradol, as this is a high risk medication for him. History of atrial fibrillation. EKGs here which seemed to show sinus rhythm. -Chads 2 vascular score is 3, and cardiology did recommend anticoagulation previously, but patient was reluctant. Continue aspirin for now. He should follow-up with his programming intern, as this should probably be reconsidered. 2. Type 2 diabetes. -Continue gabapentin for peripheral neuropathy. -Continue metformin, Accu-Cheks, sliding scale insulin. -renal function will need to be watched closely as diuretics are added to his regimen. 3. Hyperlipidemia. Continue Lipitor. 4. CODE STATUS: Full code. 5. DVT prophylaxis: Patient is on high-dose aspirin twice daily, plus early ambulation. Medical - PN: Qual - VTE Deep Vein Thrombosis/Pulmonary Embolism Present on Admission: No
[2017-08-13] MEDS: MAGNESIUM HYDROXIDE 30 ML ORAL.SUSP PO PRN (16:37)
[2017-08-13] MEDS ORDERED: FUROSEMIDE 20 MG TABLET PO ONE (17:21)
--- NOTE | 2017-08-13 18:00 | Discharge Summary ---
Ortho Discharge - NASRA - Patient Instructions Diet: Regular Diet Activity: ambulate with assistive device, weight bearing as tolerated Total Hip Protocol: Follow activity instructions as provided by Physical Therapy. Dressing Care: May shower in 2 days Patient Education: Total Hip Replacement (DC) Additional Instructions: Discharge Instructions: Do the exercises at home that physical therapy gave you. Take your prescription, photo ID, insurance cards, and current medication list with you to your first physical therapy appointment. Take your prescription to chart picker any medication or equipment (such as walker, crutches, toilet riser or C.P.M.) Wear comfortable clothing for your physical therapy. Weight bearing as tolerated. If you have the Aquacel Ag dressing, leave in place for 7 days then remove. If dressing becomes soiled (turns black), remove and use gauze 4x4 dressing and silvasorb ointment and change daily. Keep incision clean and dry. If you have Dermabond (a dressing with a mesh-like appearance), leave open to air. You may start showering on post op day #2. The Dermabond dressing can get wet, do not scrub dressing. Pat dry. To avoid constipation while taking any narcotic pain medication, take an over the counter stool softener/laxative. Use your Cryocuff or ice packs as directed, on for 20 minutes at a time throughout the day. This and elevation will help with pain and swelling. Call your physician for fevers above 100.5 or pain not controlled by medication. Your prescriptions are with your discharge information. Some medications were electronically transmitted to your pharmacy of choice. - Problem Maintenance (1) Avascular necrosis of bone of hip Status: Acute - Follow Up Plan Follow Up Appointments: Sergio Gillis MD [Physician] - 08/26/17 1:30 pm Disposition: Xfer SNF Prognosis: Good Rehab Potential: Good I certify that the patient requires SNF services: Yes Overall status at discharge: patient is progressing back to baseline
[2017-08-13] MEDS: ATORVASTATIN 20 MG TABLET PO SCH (20:02)
[2017-08-13] MEDS: SENNOSIDES 1 TABLET PO SCH (20:03)
[2017-08-13] MEDS: METHOCARBAMOL 750 MG TABLET PO PRN (20:08)
[2017-08-14] MEDS: 0.9 % SODIUM CHLORIDE 10 ML SYRINGE IV SCH (04:58)
[2017-08-14 06:28] LABS: Blood Urea Nitrogen 22 mg/dl (8-23)
--- NOTE | 2017-08-14 06:49 | Orthopedic Progress Note ---
Subjective Patient information: Note initiated : 08/14/17 at 6:46 am Service Date, if different from initiated Date: [] Patient: Buddy Marcus 87 y/o M admitted on 08/11/17 for Arthroplasty Hip Total - Left. Chief Complaint: [POD #3 s/p left NASRA Patient is 3 days s/p left NASRA and doing quite well this morning. He has been ambulating daily and tolerating that very well. His cough he reports has improved some over the past few days and is being treated for volume discrepancy per the hospitalist team. He denies calf pain, numbness, tingling or weakness in bilateral lower extremities. Also denies chest pain and SOB. He has no questions or concerns at this time.] Objective Vital signs: Vital Signs Temp Pulse Resp BP BP Pulse Ox 08/14/17 04:00 98.3 F 81 16 128/72 94 08/13/17 23:14 98.8 F 80 14 123/76 93 08/13/17 20:00 98.6 F 88 14 126/56 94 08/13/17 16:00 97.8 F 16 125/70 96 08/13/17 12:00 97.4 F 16 123/62 95 08/13/17 07:55 98.2 F 16 128/76 94 Intake and Output 08/13/17 08/14/17 08/14/17 21:59 05:59 13:59 Intake Total 1040 / 1040 150 / 150 Output Total 425 / 425 700 / 700 350 / 350 Balance 615 / 615 -550 / -550 -350 / -350 Intake: Oral 1040 / 1040 150 / 150 Output: Void Amount 425 / 425 700 / 700 350 / 350 Other: Meal Dinner Percent of Meal Consumed 100% Weight 223 lb 8 oz Intake & Output: Intake & Output 08/13/17 08/14/17 08/14/17 21:59 05:59 13:59 Intake Total 1040 / 1040 150 / 150 Output Total 425 / 425 700 / 700 350 / 350 Balance 615 / 615 -550 / -550 -350 / -350 Weight 223 lb 8 oz Intake: Oral 1040 / 1040 150 / 150 Output: Void Amount 425 / 425 700 / 700 350 / 350 Other: Meal Dinner Percent of Meal Consumed 100% Incision: Yes healing, No draining, No swollen, Yes clean and dry Incision clean and dry: Yes Dressing: Yes clean, Yes dry, Yes intact Weight bearing status: as tolerated Range of motion: full AROM b/l knee, ankle, feet Neurological exam IM: Yes alert, Yes oriented X3, Yes motor sensory intact, Yes neurovascular intact Extremities exam IM: No calf tenderness, Yes normal capillary refill, Yes normal inspection, No Kiara's sign, Yes Foot pink and warm, Yes neurovascular intact - Periperhal Pulses Peripheral pulses: 2+: dorsalis pedis (L), dorsalis pedis (R), posterior tibialis (L), posterior tibialis (R) - Labs CBC & BMP: 08/14/17 04:41 08/14/17 04:41 Labs: Orthopedic Labs 08/12/17 21:50 D-Dimer 1.38 H 08/14/17 08/13/17 08/12/17 04:41 05:04 21:50 Hgb 11.8 L 11.6 L 11.4 L Hct 35.4 L 35.1 L 34.7 L 08/12/17 04:54 Hgb 12.2 L Hct 36.6 L Assessment and Plan (1) Avascular necrosis of bone of hip Assessment: POD #3 s/p left NASRA Plan: -Pain control -continue DVT prophylaxis with ASA -continue diuresis/cardiopulm management per hospitalist -continue PT/OT outpatient at [facility] -WBAT with assistive device -leave Dermabond in place until first 2 week post op. -f/u in clinic in 10-14 days -d/c planning to [facility] swing bed today Status: Acute
[2017-08-14] MEDS: MAGNESIUM HYDROXIDE 30 ML ORAL.SUSP PO PRN (06:51)
[2017-08-14] MEDS: POLYETHYLENE GLYCOL 3350 17 GM PACKET PO PRN (06:51)
[2017-08-14] MEDS: HYDROcodone/APAP 10/325MG TABLET PO PRN (07:39)
[2017-08-14] MEDS ORDERED: metFORMIN 850 MG TABLET PO SCH (08:00)
[2017-08-14] MEDS ORDERED: FUROSEMIDE 20 MG/2 ML VIAL IV ONE (08:16)
[2017-08-14] MEDS: ALLOPURINOL 300 MG TABLET PO SCH (08:27)
[2017-08-14] MEDS: METOPROLOL SUCCINATE 25 MG TAB.XL.24H PO SCH (08:28)
[2017-08-14] MEDS: GABAPENTIN 100 MG CAPSULE PO SCH (08:28)
[2017-08-14] MEDS: ASPIRIN 325 MG ENTERIC COATED TABLET PO SCH (08:28)
[2017-08-14] MEDS: DOCUSATE SODIUM 100 MG CAPSULE PO SCH (08:28)
[2017-08-14] MEDS ORDERED: HYDROCHLOROTHIAZIDE 12.5 MG CAPSULE PO SCH (09:00)
[2017-08-14] MEDS ORDERED: LISINOPRIL 10 MG TABLET PO SCH (09:00)
[2017-08-14] MEDS ORDERED: LISINOPRIL 5 MG TABLET PO SCH (09:00)
[2017-08-14] MEDS ORDERED: RIVAROXABAN 20 MG TABLET PO SCH (09:00)
--- NOTE | 2017-08-14 10:26 | Discharge Summary ---
Medical - DS: Prov Patient information: Note initiated : 08/14/17 at 10:26 am Service Date, if different from initiated Date: [] Patient: Buddy Marcus 87 y/o M admitted on 08/11/17 for Arthroplasty Hip Total - Left. Chief Complaint: [] Date of admission: 08/11/17 10:37 Discharge date: 08/14/17 Primary care physician: Prasanna Cerna Admitting clinician: Sergio Gillis Consults: dacia moses, internal medicine Attending physician on discharge: Sergio Gillis Discharging clinician: Dacia Somers Medical - DS: Meds - Discharge Medications Prescriptions: HYDROcodone/APAP 5/325MG [[place] 5/325Mg] 1 - 2 tab PO Q4HP PRN #60 tab PRN Reason: Pain Active and Home Medications: Discharge medications: Xarelto 10 mg daily, for DVT prophylaxis, history of A. fib, new CHF Lisinopril 5 mg p.o. twice daily, for new CHF HCTZ 12.5 mg, daily, for new CHF Metoprolol succinate 25 mg p.o. twice daily (or 50 mg daily) Albuterol nebs every 4 hours as needed Allopurinol 300 mg daily Lipitor 20 mg nightly Dulcolax suppository every 3 days as needed Colace 100 mg p.o. twice daily next line gabapentin 100 mg p.o. twice daily [place] 10/325 1 tab every 4 hours as needed pain, regarding hip replacement Local magnesia 30 mL daily as needed constipation Metformin decreased to 850 mg p.o. twice daily Methocarbamol 750 mg p.o. every 6 hours as needed Zofran 4 mg IV or sublingual every 4 hours as needed nausea MiraLAX 17 g p.o. daily as needed constipation Senna 2 tabs p.o. nightly Cepacol throat lozenges as needed Previous home Medications: Allopurinol 300 mg daily Aspirin 81 mg daily Lipitor 20 mg daily Gabapentin 100 mg twice daily [place] 5/325 1-2 every 6 hours as needed Metformin 1000 mg p.o. twice daily Metoprolol succinate 25 mg p.o. twice daily Medical - DS: Hosp Hospital course: Medical discharge summary: August 12, 2017: History of present illness: Mr. Marcus is a 87 year old M I was asked to see this patient this evening by Dr. Gillis, regarding borderline O2 saturations and low urine output. Patient is status post total hip replacement yesterday. This surgery went well. It looks like he is about 5 L ahead on fluid. The patient notes he has been feeling fine until today. Today he noted increased dyspnea with exertion during physical therapy, and consents that he is wheezing. He says he has had a cough for about a week, and just in the last couple of days started to cough up yellowish phlegm. Otherwise, he denies fever chills, headaches or dizziness, new eye or ear symptoms, sore throat, swollen glands. He denies chest pain or palpitations, abdominal pain, nausea or vomiting, diarrhea or constipation, dysuria. August 13: Patient had dyspnea yesterday, associated with low O2 saturations and low urine output. He was given IV Lasix, and experienced a brisk diuresis. Preliminary workup showed no evidence of acute PA. Working diagnosis is acute volume overload with underlying CHF. I did order echocardiogram, which does show systolic dysfunction with ejection fraction of approximately 35 to 40%. Urine output is slowing down again today. Patient is still about 3900 mL ahead on fluids. Today, he says he is feeling much better. He has much less dyspnea with exertion. He does note that he has had some chronic dyspnea with exertion at home, to a much milder degree, for the last couple of years. He otherwise denies fever or chills, dizziness, chest pain or palpitations, GI or symptoms. August 14: As noted above, echocardiogram did show new onset CHF. The patient responded well to an initial dose of IV Lasix, but did not diurese last night after p.o. Lasix. He was started on lisinopril and HCTZ this morning. He was also given an extra dose of IV Lasix to try to get rid of some of the excess fluids he is retained since surgery. He is still about 4 L ahead on fluids. After reviewing his echo, his history of atrial fibrillation and previous recommendation for AC therapy by cardiology, I discussed with the patient that I would like to change him from aspirin over to either warfarin or 1 of the newer anticoagulants, as that would cover DVT prophylaxis, as well as A. fib and CHF which increases risk for stroke. He would prefer to take Xarelto, to avoid monitoring with warfarin, but that may depend on his insurance coverage. Otherwise, he says he feels well today. He denies fever chills, chest pain or palpitations, significant dyspnea on exertion, orthopnea, abdominal pain, nausea or vomiting, diarrhea or constipation, dysuria. On exam, he is sitting up in a chair. He is in no acute distress. His nurse notes he did well walking to and from the shower today. Neck is supple without obvious JVD. Cardiac exam shows regular rate and rhythm. Lungs are fairly clear to auscultation. Abdomen is soft and nontender. Extremities show only trace edema. Neurologic exam: Is grossly nonfocal. A/P Narrative: #1. Cardiopulmonary. Patient has had dyspnea since his surgery. Workup indicates volume overload in the setting of underlying CHF. -As noted above, patient started lisinopril and HCTZ today. He was also given an extra dose of IV Lasix, to try to rid him of the extra fluids he received during surgery. After discussion with the patient, I have elected to start him on Xarelto 10 mg daily. This should give him good DVT prophylaxis, as well as decrease his risk of stroke due to CHF and history of atrial fibrillation. Coverage for Xarelto may need to be verified with his insurance after discharge. 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 -He should continue with metoprolol. setting of history of atrial fibrillation , he should reconsider anticoagulation therapy. -Albuterol nebs as needed. Coronary artery disease. -Continue Lipitor, metoprolol. -Discontinue Toradol, as this is a high risk medication for him. History of atrial fibrillation. EKGs here which seemed to show sinus rhythm. -Chads 2 vascular score is 3, and cardiology did recommend anticoagulation previously, but patient was reluctant. 2. Type 2 diabetes. -Continue gabapentin for peripheral neuropathy. -Continue metformin, Accu-Cheks, sliding scale insulin. -renal function will need to be watched closely as diuretics are added to his regimen. I have decreased his metformin dose to 850 mg twice a day, as he is a little bit higher renal risk once he is on daily diuretics. We may also want to switch the HCTZ over to Lasix, as that may have less effect on his blood sugar. 3. Hyperlipidemia. Continue Lipitor. 4. CODE STATUS: Full code. 5. DVT prophylaxis: Start Xarelto. I would plan on continuing this until he can follow-up with his store operations specialist, to assess whether he should be on anticoagulation long-term. Discharge diagnosis: New-onset CHF. History of atrial fibrillation. S/P THR. - Time Spent with Patient Total time spent providing and/or coordinating discharge services: Greater than 30 minutes Medical - DS: Exam - Constitutional Vitals: Vital Signs Temp Pulse Resp BP BP Pulse Ox 08/14/17 09:14 95 08/14/17 06:47 98.5 F 22 144/71 94 08/14/17 04:00 98.3 F 81 16 128/72 94 08/13/17 23:14 98.8 F 80 14 123/76 93 08/13/17 20:00 98.6 F 88 14 126/56 94 08/13/17 16:00 97.8 F 16 125/70 96 08/13/17 12:00 97.4 F 16 123/62 95 Intake and Output 08/13/17 08/14/17 08/14/17 21:59 05:59 13:59 Intake Total 1040 / 1040 150 / 150 240 / 240 Output Total 425 / 425 700 / 700 350 / 350 Balance 615 / 615 -550 / -550 -110 / -110 Intake: Oral 1040 / 1040 150 / 150 240 / 240 Output: Void Amount 425 / 425 700 / 700 350 / 350 Other: Meal Dinner Percent of Meal Consumed 100% # Bowel Movements 1 Weight 223 lb 8 oz Medical - DS: Data Labs on day of discharge: Labs from last 24 hours 08/14/17 08/14/17 04:41 04:41 Hgb 11.8 L Hct 35.4 L Sodium 128 L Potassium 4.2 Chloride 91 L Carbon Dioxide 26 Anion Gap 11.0 BUN 22 Creatinine 0.8 GFR Calculation 79 Glucose 162 H Calcium 9.1 August 13: Echocardiogram: Left ventricle shows LVH and mild dilation. Systolic function is decreased with ejection fraction of 35-40%. Grade 2 diastolic dysfunction is also seen. Mild biatrial enlargement. Moderate aortic valve sclerosis. August 12: Chest x-ray: Shows mild cardiomegaly, and evidence of pulmonary vascular congestion. There is also evidence of bilateral rotator cuff tears. EKG: Shows normal sinus rhythm at a rate of 90, incomplete left bundle branch block. No significant change from August 11, 2017 . CBC: White blood cell count 8000, hemoglobin 11.4, hematocrit 34, platelets 362, 000. D-dimer is elevated at 1.38 Troponin: Normal at 0.02 Chemistry panel: Sodium is low at 126, potassium 4.4, chloride 92, bicarb 21, anion gap 13, BUN 23, creatinine 0.9, glucose 143 Phosphorus is low at 2.1, magnesium low at 1.5, total protein is low at 5.8, albumin low at 2.8 BNP is elevated at 2694 August 11: EKG: Shows normal sinus rhythm at a rate of 90, left axis deviation, left anterior fascicular block. No significant change from August 05, 2017. Hematocrit: 45 August 05, 2017: Chemistry panel: Sodium 129, potassium 4.7, chloride 90, CO2 21, anion gap 18, glucose 119 Urinalysis: 5 ketones, otherwise normal : Chest x-ray: Reported as showing moderate cardiomegaly. No acute changes. Next Hip x-ray: Showed marked collapse and deformity of the left femoral head, possible avascular necrosis. August 04: CBC: White blood cell count 7000, hemoglobin 13, hematocrit 38, platelets 342, 000 Medical - DS: A/P - Patient/Caregiver Discharge Instructions Activity: as per physical therapy Diet: Low Sodium (2gm) Additional Instructions: Discharge Instructions: Do the exercises at home that physical therapy gave you throughout the day. Take your prescription, photo ID, insurance cards, and current medication list with you to your first physical therapy appointment. Take your prescription to picking tech any medication or equipment (such as walker, crutches, toilet riser or C.P.M.) Wear comfortable clothing for your physical therapy. Weight bearing as tolerated. You have Dermabond (a dressing with a mesh-like appearance), leave open to air. Do not remove this dressing. You may start showering on post op day #2. The Dermabond dressing can get wet, do not scrub dressing. Pat dry. To avoid constipation while taking any narcotic pain medication, take an over the counter stool softener/laxative. Use ice packs as directed, on for 20 minutes at a time throughout the day. This and elevation will help with pain and swelling. Call your physician for fevers above 100.5 or pain not controlled by medication. Your prescriptions are with your discharge information. Some medications were electronically transmitted to your pharmacy of choice. Prescriptions: HYDROcodone/APAP 5/325MG [[place] 5/325Mg] 1 - 2 tab PO Q4HP PRN #60 tab PRN Reason: Pain Other Amb Orders: Aspiration Precautions Location: Determined By Patient Fall Risk Location: Determined By Patient OT Discharge Order Location: Determined By Patient Physical Therapy at Discharge - NASRA Location: Determined By Patient Physical Therapy at Discharge - General Location: Determined By Patient Toilet Riser Discharge Order Location: Determined By Patient Walker Location: Determined By Patient Basic Metabolic Panel Time Frame: 2 Days, Location: Determined By Patient Complete Blood Count Time Frame: 2 Days, Location: Determined By Patient - Problem Maintenance (1) Dyspnea Status: Acute (2) Coronary artery disease Status: Chronic (3) History of coronary artery stent placement Status: Chronic (4) History of atrial fibrillation Status: Chronic (5) Type 2 diabetes mellitus Status: Chronic (6) Hyperlipidemia Status: Chronic - Follow up Plan Follow up with: Sergio Gillis MD [Physician] - 08/26/17 1:30 pm Disposition: Xfer SNF Prognosis: Good Rehab Potential: Good I certify that the patient requires SNF services: Yes Overall status at discharge: patient is progressing back to baseline Medical - DS: Qual - VTE Deep Vein Thrombosis/Pulmonary Embolism Present on Admission: No
== END 2017-08-14 11:25 | DRG 470 ==
LOC: MEDSUR 10:37
PROVIDERS: ADMIT Orthopaedic Surgery Sports Medicine; ATTEND Orthopaedic Surgery Sports Medicine

== ENCOUNTER 2018-03-15 13:00 | Inpatient (IN) ==
[2018-03-15 17:25] LABS: Basophils # (Auto) 0 K/mcL (0.0-0.3); Basophils % (Auto) 0.4 % (0.0-2.0); Eosinophils # (Auto) 0.2 K/mcL (0.0-0.7); Eosinophils % (Auto) 2.5 % (0.0-7.0); Granulocytes % (Auto) 73.8 % (38.0-78.0); Lymphocytes # (Auto) 1.1 K/mcL (1.5-4.8); Lymphocytes % (Auto) 15.9 % (15.5-49.0); Mean Cell Volume 95.6 fL (80.0-100.0); Mean Corpuscular HGB Conc 32.4 g/dL (31.0-36.0); Monocytes # (Auto) 0.5 K/mcL (0.1-0.9); Monocytes % (Auto) 7.4 % (1.0-12.0); Platelet Count 313 K/mcL (140-440); RBC 4.18 M/mcL (4.50-5.90); Red Cell Distribution Width 15.2 % (11.5-14.5)
[2018-03-15 17:47] LABS: Appearance,Urine HAZY; Bacteria,Urine 0 /hpf (0); Bilirubin,Urine NEG (NEG); Color,Urine YELLOW; Glucose,Urine (UA) NEGATIVE (NEG); Leukocyte Esterase,Urine 500 /uL (NEG); Protein,Urine NEG (NEG); Specific Gravity,Urine 1.011 (1.000-1.035); Urine Amorphous Crystals FEW /hpf (0); Urine Blood >=1.0 mg/dL (<0.03); Urine RBC 95 /hpf (0-1); Urine Squamous Epithelial Cell < 1 /hpf (0-4); Urine WBC 107 /hpf (0-4); Urobilinogen,Urine NEG (NEG)
[2018-03-15 18:02] LABS: Blood Urea Nitrogen 19 mg/dl (8-23)
--- NOTE | 2018-03-18 09:20 | General Surgery Progress Note ---
Surgical - Auxillary Note - Subjective Patient Information: Note initiated : 03/18/18 at 9:18 am Service Date, if different from initiated Date: [] Patient: Buddy Marcus 87 y/o M admitted on for Right Total Hip Arthroplasty. Chief Complaint: [preop UTI +culture pt contacted, burning w urination. will fill rx today. Called in [facility] to [facility]. ]
[2018-03-19] MEDS ORDERED: oxyCODONE 10 MG TAB.ER.12H PO SCH ×2 (07:00→11:00)
[2018-03-19] MEDS ORDERED: CELECOXIB 200 MG CAPSULE PO SCH ×2 (07:00→11:00)
[2018-03-19] MEDS ORDERED: ceFAZolin 1 GM VIAL IV SCH ×2 (07:00→11:00)
[2018-03-19] MEDS ORDERED: PREGABALIN 75 MG CAPSULE PO SCH ×2 (07:00→11:00)
[2018-03-19 11:16] LABS: Appearance,Urine CLEAR; Bacteria,Urine 0 /hpf (0); Bilirubin,Urine NEG (NEG); Color,Urine STRAW; Glucose,Urine (UA) NEGATIVE (NEG); Leukocyte Esterase,Urine 25 /uL (NEG); Mucus,Urine FEW /hpf (0); Protein,Urine NEG (NEG); Specific Gravity,Urine 1.008 (1.000-1.035); Urine Blood 0.03 mg/dL (<0.03); Urine RBC 19 /hpf (0-1); Urine Squamous Epithelial Cell 0 /hpf (0-4); Urine WBC 8 /hpf (0-4); Urobilinogen,Urine NEG (NEG)
[2018-03-19] MEDS ORDERED: CIPROFLOXACIN 400 MG/200 ML BAG IV ONE (12:23)
[2018-03-19] MEDS ORDERED: GENTAMICIN SULFATE 800 MG/20 ML VIAL IR ONE (16:02)
[2018-03-19] MEDS ORDERED: MIDAZOLAM 2 MG/2 ML VIAL ONE (16:56)
[2018-03-19] MEDS ORDERED: fentaNYL 100 MCG/2 ML VIAL IV ONE (16:56)
[2018-03-19] MEDS ORDERED: GLYCOPYRROLATE 0.2 MG/ML VIAL IV ONE (16:56)
[2018-03-19] MEDS ORDERED: PROPOFOL 200 MG/20 ML VIAL IV ONE (16:56)
[2018-03-19] MEDS ORDERED: PHENYLEPHRINE 10 MG/ML VIAL ONE (16:56)
[2018-03-19] MEDS ORDERED: ePHEDrine 50 MG/ML AMPUL IV ONE (16:56)
[2018-03-19] MEDS ORDERED: ONDANSETRON 4 MG/2 ML VIAL ONE (16:56)
[2018-03-19] MEDS ORDERED: LIDOCAINE HCL/PF 100 MG/5 ML SYRINGE IV ONE (16:56)
[2018-03-19] MEDS ORDERED: DEXAMETHASONE 10 MG/ML VIAL ONE (16:56)
--- NOTE | 2018-03-19 18:04 | XRay Report ---
INDICATION: Status post intubation and NG tube placement TECHNIQUE: AP chest x-ray, supine portable COMPARISON: Previous examination dated 08/12/2017 FINDINGS: Esophagogastric tube with its tip in the proximal stomach. The sidehole of the catheter is at approximately the gastroesophageal junction Endotracheal tube tip 5 cm above the wayne. There is cardiomegaly, unchanged. No acute or focal pulmonary parenchymal infiltrate or mass. No evidence for pulmonary edema Intensive care unit was called with these results, 03/19/2018, 1750 IMPRESSION: 1. Endotracheal tube tip 5 cm above the wayne 2. Esophagogastric tube in the proximal stomach Interpreted and Authenticated by: Segrio Angulo 03/19/18
--- NOTE | 2018-03-19 18:19 | Internal Medicine Consult Note ---
Medical - CN: HPI - Data of Consult Consult date: 03/19/18 (call to stat consult) Requesting Physician: Sergio Gillis Primary Care Provider: Prasanna Cerna Family Provider: Prasanna Cerna - Consult Narrative Reason for consult: s/p code pre-surgury, hypotensive bradycardia during anesthesia. History of present illness: Mr. Marcus is a 87 year old diabetic male with significant PMH of atrial fibrillation, diabetic peripheral neuropathy, hyperlipidemia, gout, avascular necrosis of hip. He is scheduled to have surgical right total hip replacement replacement arthroplasty by Dr. Gillis, and has just coded CPR for hypotensive bradycardia during spinal block anesthesia. Stat consultation requested by Dr. Gillis to assist. Currently he is in the ICU, intubated, begins awakening from the event. Apparently he was given Percocet, fentanyl, propofol during the procedure, and went in to hypotensive with bradycardia, pressor was given, and his heart stop, immediately CPR began, and he was intubated for coding protocol. Subsequently he regained his rhythm, pulse, blood pressure and transferred to ICU. He is now waking up. His EKG showed atrial fibrillation with controlled rate, portable chest with cardiomegaly slight fluid overload. CC: Sergio Gillis All systems: reviewed and no additional remarkable complaints except as stated - Cardiovascular Cardiovascular: Present: as per HPI, dyspnea on exertion, leg edema Medical - CN: PMH Medical history: CAD S/P [place] 1999, status post 2 stents, 2006 DM type II, history of atrial fibrillation, diabetic peripheral neuropathy, hyperlipidemia, gout, avascular necrosis of hip, colon cancer Surgical history: CAD status post stent 2 Family history: reviewed and not pertinent Smoking status: Former smoker Medical - CN: Meds Home Medications Medication Instructions Recorded Confirmed Type Allopurinol [Zyloprim] 300 mg PO DAILY 08/05/17 03/19/18 History Atorvastatin [Lipitor] 20 mg PO DAILY 08/05/17 03/19/18 History Gabapentin [Neurontin] 100 mg PO BID 08/05/17 03/19/18 History metFORMIN [Glucophage] 1,000 mg PO BIDCC 08/05/17 03/19/18 History Furosemide [Lasix] 20 mg PO DAILYP PRN 03/15/18 03/19/18 History Metoprolol Tartrate [Lopressor] 25 mg PO BID 03/15/18 03/19/18 History Allergies Allergy/AdvReac Type Severity Reaction Status Date / Time No Known Drug Allergies Allergy Verified 03/15/18 12:58 Medical - CN: Exam - Constitutional Vitals: Temp Pulse Resp BP Pulse Ox 97.1 F 74 10 L 105/73 98 03/19/18 17:47 03/15/18 13:12 03/19/18 17:47 03/19/18 17:47 03/19/18 17:47 - Head Head exam: Present: atraumatic Additional comments: intubated - Eye Pupils: Present: PERRL - ENT ENT exam: Present: mucous membranes dry - Neck Neck exam: Absent: meningismus - Respiratory Additional comments: Intubated, breasts are bilateral and equal - Cardiovascular Cardiovascular exam: Present: irregular rhythm, +S1, +S2. Absent: gallop, rubs - GI/Abdominal GI/Abdominal exam: Present: diminished bowel sounds. Absent: guarding, rebound , tenderness - Extremities Exam Extremities exam: Present: pedal edema - Neurological Exam Neurological exam: Present: reflexes normal Additional comments: Limited exam, intubated, waking up from sedation - Skin Skin exam: Present: dry Medical - CN: Result - Labs CBC & Chem 7: 03/22/18 03:30 03/22/18 03:30 Labs: Urine 03/19/18 Range/Units 10:00 Urine Color Straw Urine Appearance Clear Urine pH 7.0 (5.0-9.0) Ur Specific [place] 1.008 (1.000-1.035) Urine Protein Neg (NEG) mg/dL Urine Glucose (UA) Negative (NEG) mg/dL - EKG Data EKG comments: 03/19/18 18:22 A. fib, 79, bundle-branch block Medical - CN: A/P (1) Hypotensive episode Status: Acute (2) CHF (congestive heart failure) Status: Acute (3) A-fib Status: Acute (4) UTI (urinary tract infection) Status: Acute - Narrative A/P Narrative: Stat ABG, extubated to BiPAP or CPAP, Lasix diuretic, serial cardiac enzymes, stat labs, continue close monitoring and support.
[2018-03-19] MEDS ORDERED: METOPROLOL TARTRATE 5 MG/5 ML VIAL IV ONE ×3 (18:50→21:50)
[2018-03-19] MEDS ORDERED: ONDANSETRON 4 MG/2 ML VIAL IV PRN ×2 (19:06→20:56)
[2018-03-19] MEDS ORDERED: ACETAMINOPHEN 325 MG TABLET PO PRN (19:06)
[2018-03-19] MEDS ORDERED: FUROSEMIDE 20 MG/2 ML VIAL IV ONE (19:35)
[2018-03-19 19:37] LABS: Basophils # (Auto) 0 K/mcL (0.0-0.3); Basophils % (Auto) 0.2 % (0.0-2.0); Eosinophils # (Auto) 0.1 K/mcL (0.0-0.7); Eosinophils % (Auto) 1.3 % (0.0-7.0); Granulocytes % (Auto) 87.1 % (38.0-78.0); Lymphocytes # (Auto) 0.9 K/mcL (1.5-4.8); Lymphocytes % (Auto) 7.6 % (15.5-49.0); Mean Cell Volume 95.6 fL (80.0-100.0); Mean Corpuscular HGB Conc 32.7 g/dL (31.0-36.0); Mean Corpuscular Hemoglobin 31.2 pg (26.0-34.0); Monocytes # (Auto) 0.4 K/mcL (0.1-0.9); Monocytes % (Auto) 3.8 % (1.0-12.0); Platelet Count 272 K/mcL (140-440); RBC 3.73 M/mcL (4.50-5.90); Red Cell Distribution Width 15.1 % (11.5-14.5)
[2018-03-19] MEDS ORDERED: PANTOPRAZOLE 40 MG TABLET PO SCH (19:43)
[2018-03-19] MEDS ORDERED: NALOXONE HCL 0.4 MG/ML VIAL ONE (20:07)
[2018-03-19 20:12] LABS: ALT/SGPT 44 U/l (0-40); Albumin 3.3 gm/dL (3.2-5.2); Alkaline Phosphatase 105 U/L (39-117); Blood Urea Nitrogen 14 mg/dl (8-23)
[2018-03-19] MEDS ORDERED: FUROSEMIDE 40 MG/4 ML VIAL IV ONE (20:19)
[2018-03-19 20:30] LABS: Appearance,Urine HAZY; Bacteria,Urine 0 /hpf (0); Bilirubin,Urine NEG (NEG); Color,Urine PINK; Glucose,Urine (UA) NEGATIVE (NEG); Leukocyte Esterase,Urine 75 /uL (NEG); Mucus,Urine FEW /hpf (0); Protein,Urine 100 mg/dL (NEG); Specific Gravity,Urine 1.016 (1.000-1.035); Urine Blood >=1.0 mg/dL (<0.03); Urine RBC > 182 /hpf (0-1); Urine Squamous Epithelial Cell 0 /hpf (0-4); Urine WBC 70 /hpf (0-4); Urobilinogen,Urine NEG (NEG)
[2018-03-19] MEDS ORDERED: BUDESONIDE 0.5 MG/2 ML AMPUL.NEB NEB ONE (20:39)
[2018-03-19] MEDS: BUDESONIDE 0.5 MG/2 ML AMPUL.NEB NEB SCH ×2 (20:40→20:59)
[2018-03-19 20:46] LABS: Erythrocyte Sedimentation Rate 31 mm/hr (0-15)
[2018-03-19] MEDS ORDERED: ALBUTEROL SULFATE 2.5 MG/3 ML NEBULIZER NEB PRN ×2 (20:52→20:56)
[2018-03-19] MEDS ORDERED: BUDESONIDE 0.5 MG/2 ML AMPUL.NEB NEB SCH (21:00)
[2018-03-19] MEDS ORDERED: DOCUSATE SODIUM 100 MG CAPSULE PO SCH (21:00)
[2018-03-19] MEDS: DOCUSATE SODIUM 100 MG CAPSULE PO SCH (21:53)
[2018-03-19] MEDS: 0.9 % SODIUM CHLORIDE 10 ML SYRINGE IV SCH (21:54)
[2018-03-19] MEDS ORDERED: 0.9 % SODIUM CHLORIDE 10 ML SYRINGE IV SCH (22:00)
[2018-03-19] MEDS: IPRATROPIUM/ALBUTEROL 3 ML AMPUL.NEB NEB SCH (22:20)
[2018-03-19] MEDS ORDERED: ALBUTEROL SULFATE 2.5 MG/3 ML NEBULIZER NEB SCH (23:00)
[2018-03-19] MEDS ORDERED: IPRATROPIUM/ALBUTEROL 3 ML AMPUL.NEB NEB SCH (23:00)
[2018-03-20] MEDS: IPRATROPIUM/ALBUTEROL 3 ML AMPUL.NEB NEB SCH ×6 (03:01→22:32)
[2018-03-20] MEDS ORDERED: CIPROFLOXACIN 400 MG/200 ML BAG IV SCH (04:30)
[2018-03-20] MEDS ORDERED: CIPROFLOXACIN 400 MG/200 ML BAG IV ONE (04:32)
[2018-03-20] MEDS: 0.9 % SODIUM CHLORIDE 10 ML SYRINGE IV SCH ×5 (04:39→20:20)
[2018-03-20 05:35] LABS: ALT/SGPT 36 U/l (0-40); Albumin 3.2 gm/dL (3.2-5.2); Alkaline Phosphatase 96 U/L (39-117); Blood Urea Nitrogen 16 mg/dl (8-23)
[2018-03-20 05:38] LABS: Basophils # (Auto) 0 K/mcL (0.0-0.3); Basophils % (Auto) 0.1 % (0.0-2.0); Eosinophils # (Auto) 0.1 K/mcL (0.0-0.7); Eosinophils % (Auto) 1.5 % (0.0-7.0); Granulocytes % (Auto) 76.7 % (38.0-78.0); Lymphocytes # (Auto) 0.9 K/mcL (1.5-4.8); Lymphocytes % (Auto) 13.6 % (15.5-49.0); Mean Cell Volume 94.9 fL (80.0-100.0); Mean Corpuscular HGB Conc 33.3 g/dL (31.0-36.0); Mean Corpuscular Hemoglobin 31.6 pg (26.0-34.0); Monocytes # (Auto) 0.5 K/mcL (0.1-0.9); Monocytes % (Auto) 8.1 % (1.0-12.0); Platelet Count 267 K/mcL (140-440); RBC 3.55 M/mcL (4.50-5.90); Red Cell Distribution Width 15.3 % (11.5-14.5)
--- NOTE | 2018-03-20 05:41 | Orthopedic Progress Note ---
Subjective Patient information: Note initiated : 03/20/18 at 5:39 am Service Date, if different from initiated Date: [] Patient: Buddy Marcus 87 y/o M admitted on 03/19/18 for Right Total Hip Arthroplasty. Chief Complaint: [s/p hypotensive episode/code in OR Patient resting comfortably. According to nurse, patient has been alert and oriented x 3 with no confusion. He had no more episodes overnight with no hypotension, chest pain or recurrent dysrhythmias. He was placed on CPAP for oxygen optimization. The consensus seems to be likely hypotensive event without cardiac event. ] Objective Vital signs: Vital Signs Temp Pulse Resp BP BP Pulse Ox 03/20/18 05:01 20 105/52 100 03/20/18 05:00 67 20 100 03/20/18 04:01 98.7 F 17 98/59 98 03/20/18 03:26 66 12 03/20/18 03:01 12 107/58 100 03/20/18 03:00 64 17 100 03/20/18 02:31 110/57 100 03/20/18 02:01 98/62 98 03/20/18 02:00 12 100 03/20/18 01:31 65 105/55 100 03/20/18 01:01 64 13 100/53 97 03/20/18 00:59 67 12 99 03/20/18 00:31 65 16 102/56 100 03/20/18 00:01 98.5 F 64 18 101/55 99 03/19/18 23:31 67 15 98/54 99 03/19/18 23:01 67 12 94/51 98 03/19/18 22:46 63 17 96 03/19/18 22:31 63 15 98/56 96 03/19/18 22:20 65 15 03/19/18 22:01 62 12 101/58 99 03/19/18 21:31 68 24 H 107/69 99 03/19/18 21:04 65 25 H 100 03/19/18 21:02 75 28 H 03/19/18 21:01 70 16 117/62 99 03/19/18 20:57 67 26 H 100 03/19/18 20:31 74 24 H 109/65 100 03/19/18 20:16 70 16 97/63 100 03/19/18 20:01 70 16 93/71 99 03/19/18 19:51 72 19 86/55 99 03/19/18 19:50 71 15 96/56 98 03/19/18 19:39 97.7 F 12 96/56 99 03/19/18 19:31 70 11 L 86/59 100 03/19/18 19:30 79 21 84/57 100 03/19/18 19:16 69 19 84/56 100 03/19/18 19:10 71 20 92/48 100 03/19/18 18:45 11 L 98 03/19/18 18:31 83 23 H 103/70 100 03/19/18 18:16 87 12 114/67 96 03/19/18 18:15 89 15 95 03/19/18 18:01 92 H 19 102/63 97 03/19/18 17:47 97.1 F 10 L 105/73 98 03/19/18 17:46 93 H 16 103/69 98 03/19/18 17:34 98 H 16 98/73 96 03/19/18 17:31 102 H 14 104/67 95 03/19/18 17:25 97.1 F 19 105/73 96 03/19/18 09:52 98.5 F 16 165/80 94 03/19/18 09:31 98.5 F 16 165/80 94 Intake and Output 03/19/18 03/19/18 03/20/18 13:59 21:59 05:59 Intake Total 200 / 200 0 / 0 Output Total 250 / 250 550 / 550 485 / 485 Balance -250 / -250 -350 / -350 -485 / -485 Intake: IV 200 / 200 Oral 0 / 0 0 / 0 Output: Urine Catheter Amount 250 / 250 550 / 550 485 / 485 Other: # Voids 1 # Bowel Movements 0 Weight 215 lb 217 lb 3.2 oz 216 lb 1 oz Patient Weight 03/20/18 05:59 Weight 216 lb 1 oz Intake & Output: Intake & Output 03/19/18 03/19/18 03/20/18 13:59 21:59 05:59 Intake Total 200 / 200 0 / 0 Output Total 250 / 250 550 / 550 485 / 485 Balance -250 / -250 -350 / -350 -485 / -485 Weight 215 lb 217 lb 3.2 oz 216 lb 1 oz Intake: IV 200 / 200 Oral 0 / 0 0 / 0 Output: Urine Catheter Amount 250 / 250 550 / 550 485 / 485 Other: # Voids 1 # Bowel Movements 0 Weight bearing status: full Neurological exam IM: Yes alert, Yes oriented X3, Yes motor sensory intact, Yes neurovascular intact - Labs CBC & BMP: 03/20/18 03:45 03/20/18 03:45 Labs: Orthopedic Labs 03/19/18 03/19/18 03/15/18 18:38 18:38 13:32 PT 14.7 H 13.3 INR 1.1 1.0 D-Dimer 12.13 H 03/20/18 03/19/18 03/15/18 03:45 18:38 13:33 Hgb 11.2 L 11.6 L 12.9 L Hct 33.7 L 35.6 L 39.9 L Assessment and Plan (1) Hypotensive episode s/p hypotensive episode in OR requiring compressions and code: -doing better. Will continue to be monitored per hospitalist guidance and medical management. May d/c to home when medically stable. Will follow up with office to discuss surgery reschedule down the road Status: Acute
[2018-03-20] MEDS ORDERED: MAGNESIUM SULFATE 2 GM/50 ML BAG IV ONE (06:35)
[2018-03-20] MEDS: ACETAMINOPHEN 325 MG TABLET PO PRN ×3 (06:37→15:56)
[2018-03-20] MEDS: BUDESONIDE 0.5 MG/2 ML AMPUL.NEB NEB SCH ×2 (07:18→19:23)
[2018-03-20] MEDS: PANTOPRAZOLE 40 MG TABLET PO SCH (08:04)
[2018-03-20] MEDS: METOPROLOL TARTRATE 25 MG TABLET PO SCH ×2 (09:23→20:20)
[2018-03-20] MEDS: DOCUSATE SODIUM 100 MG CAPSULE PO SCH ×2 (09:23→20:20)
[2018-03-20] MEDS: GABAPENTIN 100 MG CAPSULE PO SCH ×2 (09:23→20:20)
[2018-03-20] MEDS: FUROSEMIDE 20 MG/2 ML VIAL IV SCH (09:24)
[2018-03-20] MEDS: metFORMIN 500 MG TABLET PO SCH ×2 (09:27→17:28)
[2018-03-20] MEDS: ALLOPURINOL 300 MG TABLET PO SCH (09:27)
--- NOTE | 2018-03-20 10:49 | XRay Report ---
INDICATION: History of pulmonary edema. Status post extubation TECHNIQUE: AP chest x-ray, portable semiupright COMPARISON: 03/19/2018 FINDINGS: Status post extubation. No ureteral or focal pulmonary parenchymal infiltrate. No parenchymal mass. Left hemidiaphragm is elevated. This is unchanged. Is cardiomegaly. No pulmonary edema. Degenerative joint disease in both shoulders. Superior decentering consistent with rotator cuff degeneration. Previous resection of the distal clavicle bilaterally. IMPRESSION: 1. Cardiomegaly. No pulmonary edema 2. No acute or focal pulmonary parenchymal infiltrate Interpreted and Authenticated by: Sergio Angulo 03/20/18
--- NOTE | 2018-03-20 11:22 | Internal Med Progress Note ---
Medical - PN: Subj Patient information: Note initiated : 03/20/18 at 11:22 am Service Date, if different from initiated Date: [] Patient: Buddy Marcus 87 y/o M admitted on 03/19/18 for Right Total Hip Arthroplasty. Chief Complaint: [] - Constitutional Vitals: Vital Signs Temp Pulse Resp BP Pulse Ox 98.5 F 69 18 117/52 100 03/20/18 07:01 03/20/18 07:19 03/20/18 07:19 03/20/18 07:01 03/20/18 07:19 Period Temp Pulse Resp BP Sys/Berg Pulse Ox Last 24 Hr 97.1 F-98.7 F 62-102 10-28 84-117/48-73 95-100 Intake and Output 03/19/18 03/20/18 03/20/18 21:59 05:59 13:59 Intake Total 200 / 200 200 / 200 Output Total 550 / 550 485 / 485 80 / 80 Balance -350 / -350 -285 / -285 -80 / -80 Weight 217 lb 3.2 oz 216 lb 1 oz Intake & Output: Intake & Output 03/19/18 03/20/18 03/20/18 21:59 05:59 13:59 Intake Total 200 / 200 200 / 200 Output Total 550 / 550 485 / 485 80 / 80 Balance -350 / -350 -285 / -285 -80 / -80 Weight 217 lb 3.2 oz 216 lb 1 oz Intake: IV 200 / 200 200 / 200 Oral 0 / 0 0 / 0 Output: Urine Catheter Amount 550 / 550 485 / 485 80 / 80 Other: # Bowel Movements 0 Medical - PN: Obj Da - Labs CBC & Chem 7: 03/20/18 03:45 03/20/18 03:45 Labs: Abnormal Lab Results 03/20/18 03/20/18 03/20/18 10:31 10:31 03:45 WBC RBC Hgb Hct RDW Gran % Lymph % (Auto) Gran # Lymph # (Auto) ESR PT D-Dimer Chloride Glucose AST ALT Troponin T 0.08 H* 0.08 H* NT-Pro-B Natriuret Pep 2555.0 H TSH Urine Protein Urine Occult Blood Ur Leukocyte Esterase Urine RBC Urine WBC 03/20/18 03/20/18 03/19/18 03:45 03:45 19:40 WBC RBC 3.55 L Hgb 11.2 L Hct 33.7 L RDW 15.3 H Gran % Lymph % (Auto) 13.6 L Gran # Lymph # (Auto) 0.9 L ESR PT D-Dimer Chloride Glucose 142 H AST ALT Troponin T NT-Pro-B Natriuret Pep TSH Urine Protein 100 A Urine Occult Blood >=1.0 A Ur Leukocyte Esterase 75 A Urine RBC > 182 H Urine WBC 70 H 03/19/18 03/19/18 03/19/18 18:38 18:38 18:38 WBC RBC Hgb Hct RDW Gran % Lymph % (Auto) Gran # Lymph # (Auto) ESR PT 14.7 H D-Dimer 12.13 H Chloride 95 L Glucose 152 H AST 50 H ALT 44 H Troponin T NT-Pro-B Natriuret Pep 2642.0 H TSH 9.02 H Urine Protein Urine Occult Blood Ur Leukocyte Esterase Urine RBC Urine WBC 03/19/18 03/19/18 18:38 10:00 WBC 11.8 H RBC 3.73 L Hgb 11.6 L Hct 35.6 L RDW 15.1 H Gran % 87.1 H Lymph % (Auto) 7.6 L Gran # 10.3 H Lymph # (Auto) 0.9 L ESR 31 H PT D-Dimer Chloride Glucose AST ALT Troponin T NT-Pro-B Natriuret Pep TSH Urine Protein Urine Occult Blood 0.03 A Ur Leukocyte Esterase 25 A Urine RBC 19 H Urine WBC 8 H Meds: Medications Acetaminophen (Tylenol) 650 mg PO Q4-6HP PRN PRN Reason: PAIN/FEVER > 101 Last Admin: 03/20/18 06:37 Dose: 650 mg Albuterol Sulfate (Ventolin) 2.5 mg NEB Q2HP PRN PRN Reason: Dyspnea Last Admin: 03/19/18 20:40 Dose: 2.5 mg Albuterol/Ipratropium (Duoneb) 3 ml NEB Q4HRT [facility] Last Admin: 03/20/18 11:21 Dose: 3 ml Allopurinol (Zylopriim) 300 mg PO DAILY [facility] Last Admin: 03/20/18 09:27 Dose: 300 mg Atorvastatin Calcium (Lipitor) 20 mg PO HS [facility] Budesonide (Pulmicort) 0.5 mg NEB Q12 [facility] Last Admin: 03/20/18 07:18 Dose: 0.5 mg Docusate Sodium (Colace) 100 mg PO BID [facility] Last Admin: 03/20/18 09:23 Dose: 100 mg Furosemide (Lasix) 20 mg IV DAILY [facility] Last Admin: 03/20/18 09:24 Dose: 20 mg Gabapentin (Neurontin) 100 mg PO BID [facility] Last Admin: 03/20/18 09:23 Dose: 100 mg Ciprofloxacin (Cipro) 400 mg in 200 mls @ 200 mls/hr IV Q12H [facility] Lidocaine (Lidoderm) 1 patch TOPICAL DAILY@1000 [facility] Lidocaine (Lidoderm) 0 patch TOPICAL HS@2200 [facility] Metformin HCl (Glucophage) 1,000 mg PO BIDCC [facility] Last Admin: 03/20/18 09:27 Dose: 1,000 mg Metoprolol Tartrate (Lopressor) 25 mg PO BID [facility] Last Admin: 03/20/18 09:23 Dose: 25 mg Ondansetron HCl (Zofran) 4 mg IV Q6HP PRN PRN Reason: Nausea And Vomiting Pantoprazole Sodium (Protonix) 40 mg PO QAMAC [facility] Last Admin: 03/20/18 08:04 Dose: 40 mg Sodium Chloride (Saline Flush) 10 ml IV Q8 [facility] Last Admin: 03/20/18 09:24 Dose: 10 ml Medical - PN: A/P - Time Spent With Patient Total time spent is greater than 50% in coordination of care (as documented) at patient's floor/unit and/or counseling patient: (1) Hypotensive episode Status: Acute Current Visit: Yes (2) CHF (congestive heart failure) Status: Acute Current Visit: Yes (3) A-fib Status: Acute Current Visit: Yes (4) UTI (urinary tract infection) Status: Acute Current Visit: Yes Medical - PN: Qual - VTE Deep Vein Thrombosis/Pulmonary Embolism Present on Admission: No
[2018-03-20] MEDS: LIDOCAINE PATCH TOPICAL SCH (11:31)
[2018-03-20] MEDS: CIPROFLOXACIN 400 MG/200 ML BAG IV SCH (20:20)
[2018-03-20] MEDS ORDERED: ATORVASTATIN 20 MG TABLET PO SCH (21:00)
[2018-03-20] MEDS ORDERED: diphenhydrAMINE 25 MG CAPSULE ONE (21:04)
[2018-03-20] MEDS: diphenhydrAMINE 25 MG CAPSULE PO PRN (21:10)
[2018-03-20] MEDS ORDERED: LIDOCAINE PATCH TOPICAL SCH (22:00)
[2018-03-21] MEDS: IPRATROPIUM/ALBUTEROL 3 ML AMPUL.NEB NEB SCH ×7 (03:06→22:41)
[2018-03-21] MEDS ORDERED: ACETAMINOPHEN W/CODEINE #3 1 TABLET PO ONE (03:13)
[2018-03-21] MEDS: ACETAMINOPHEN W/CODEINE #3 1 TABLET PO PRN ×4 (03:14→20:21)
[2018-03-21 05:22] LABS: Basophils # (Auto) 0 K/mcL (0.0-0.3); Basophils % (Auto) 0.2 % (0.0-2.0); Eosinophils # (Auto) 0.2 K/mcL (0.0-0.7); Eosinophils % (Auto) 2.7 % (0.0-7.0); Granulocytes % (Auto) 81.2 % (38.0-78.0); Lymphocytes # (Auto) 0.8 K/mcL (1.5-4.8); Lymphocytes % (Auto) 8.9 % (15.5-49.0); Mean Cell Volume 95.3 fL (80.0-100.0); Mean Corpuscular HGB Conc 33.2 g/dL (31.0-36.0); Mean Corpuscular Hemoglobin 31.7 pg (26.0-34.0); Monocytes # (Auto) 0.6 K/mcL (0.1-0.9); Platelet Count 260 K/mcL (140-440); RBC 3.49 M/mcL (4.50-5.90); Red Cell Distribution Width 15.4 % (11.5-14.5)
[2018-03-21 05:43] LABS: ALT/SGPT 30 U/l (0-40); Albumin 3.1 gm/dL (3.2-5.2); Alkaline Phosphatase 93 U/L (39-117); Blood Urea Nitrogen 21 mg/dl (8-23)
[2018-03-21] MEDS: 0.9 % SODIUM CHLORIDE 10 ML SYRINGE IV SCH ×3 (06:06→20:22)
[2018-03-21] MEDS: PANTOPRAZOLE 40 MG TABLET PO SCH (06:59)
[2018-03-21] MEDS: ACETAMINOPHEN 325 MG TABLET PO PRN (07:17)
[2018-03-21] MEDS: metFORMIN 500 MG TABLET PO SCH ×2 (07:25→17:06)
[2018-03-21] MEDS: BUDESONIDE 0.5 MG/2 ML AMPUL.NEB NEB SCH ×2 (07:29→19:11)
[2018-03-21] MEDS: ALLOPURINOL 300 MG TABLET PO SCH (08:31)
[2018-03-21] MEDS: GABAPENTIN 100 MG CAPSULE PO SCH ×2 (08:31→20:46)
[2018-03-21] MEDS: FUROSEMIDE 20 MG/2 ML VIAL IV SCH (08:31)
[2018-03-21] MEDS: DOCUSATE SODIUM 100 MG CAPSULE PO SCH ×2 (08:31→20:46)
[2018-03-21] MEDS: METOPROLOL TARTRATE 25 MG TABLET PO SCH ×2 (08:31→20:47)
[2018-03-21] MEDS: LIDOCAINE PATCH TOPICAL SCH (09:21)
[2018-03-21] MEDS: CIPROFLOXACIN 400 MG/200 ML BAG IV SCH ×2 (09:22→21:41)
--- NOTE | 2018-03-21 09:44 | Orthopedic Progress Note ---
Subjective Patient information: Note initiated : 03/21/18 at 9:43 am Service Date, if different from initiated Date: [] Patient: Buddy Marcus 87 y/o M admitted on 03/19/18 for Right Total Hip Arthroplasty. Chief Complaint: [] Interval history: doing ok today Objective Vital signs: Vital Signs Temp Pulse Resp BP Pulse Ox 03/21/18 09:01 23 H 112/54 95 03/21/18 08:01 20 129/74 96 03/21/18 07:32 74 16 97 03/21/18 07:01 99.4 F H 18 118/55 96 03/21/18 07:00 98 03/21/18 06:01 22 123/61 96 03/21/18 05:01 21 94/42 94 03/21/18 04:01 98.6 F 19 116/53 96 03/21/18 03:01 23 H 121/60 96 03/21/18 02:01 21 109/53 94 03/21/18 01:01 21 111/54 96 03/21/18 00:04 18 98 03/21/18 00:01 98.9 F 18 109/52 98 03/21/18 00:00 99 03/20/18 23:01 22 109/50 97 03/20/18 22:33 72 15 03/20/18 22:01 19 113/49 93 03/20/18 21:01 22 108/51 95 03/20/18 20:01 18 101/44 96 03/20/18 20:00 98.1 F 23 H 101/44 96 03/20/18 19:24 74 12 93 03/20/18 19:23 78 19 03/20/18 19:01 21 104/54 98 03/20/18 18:01 19 115/58 97 03/20/18 18:00 97 03/20/18 17:15 21 96 03/20/18 17:04 19 92/40 97 03/20/18 17:01 98.5 F 18 83/37 97 03/20/18 16:04 98.1 F 22 101/46 95 03/20/18 15:51 98.1 F 18 108/57 95 03/20/18 15:42 98.1 F 15 103/57 95 03/20/18 15:00 21 96/48 96 03/20/18 14:56 71 21 96 03/20/18 14:45 76 15 03/20/18 14:01 20 88/46 97 03/20/18 14:00 97 03/20/18 13:01 18 99/48 97 03/20/18 12:07 20 95 03/20/18 12:02 99.0 F H 20 98/42 96 03/20/18 12:00 99 F 18 98/42 95 03/20/18 11:23 72 16 03/20/18 11:01 20 105/58 96 03/20/18 10:01 18 87/45 97 Intake and Output 03/20/18 03/21/18 03/21/18 21:59 05:59 13:59 Intake Total 640 / 640 450 / 450 420 / 420 Output Total 265 / 265 475 / 475 105 / 105 Balance 375 / 375 -25 / -25 315 / 315 Intake: IV 200 / 200 Oral 640 / 640 250 / 250 420 / 420 Output: Urine Catheter Amount 265 / 265 475 / 475 105 / 105 Other: Meal Dinner Breakfast Percent of Meal Consumed 75% 100% Feeding Ability Assist with Tray Set Up Weight 222 lb 1.6 oz Intake & Output: Intake & Output 03/20/18 03/21/18 03/21/18 21:59 05:59 13:59 Intake Total 640 / 640 450 / 450 420 / 420 Output Total 265 / 265 475 / 475 105 / 105 Balance 375 / 375 -25 / -25 315 / 315 Weight 222 lb 1.6 oz Intake: IV 200 / 200 Oral 640 / 640 250 / 250 420 / 420 Output: Urine Catheter Amount 265 / 265 475 / 475 105 / 105 Other: Meal Dinner Breakfast Percent of Meal Consumed 75% 100% Feeding Ability Assist with Tray Set Up Weight bearing status: full Neurological exam IM: Yes alert, Yes normal gait, Yes oriented X3, Yes motor sensory intact, Yes neurovascular intact Extremities exam IM: No calf tenderness, Yes Foot pink and warm, Yes neurovascular intact - Labs CBC & BMP: 03/21/18 03:45 03/21/18 03:45 Labs: Orthopedic Labs 03/19/18 03/19/18 03/15/18 18:38 18:38 13:32 PT 14.7 H 13.3 INR 1.1 1.0 D-Dimer 12.13 H 07/03/20/18 03/19/18 03:45 03:45 18:38 Hgb 11.1 L 11.2 L 11.6 L Hct 33.3 L 33.7 L 35.6 L 03/15/18 13:33 Hgb 12.9 L Hct 39.9 L Assessment and Plan (1) Osteoarthritis of hip continue cardiac w/u will have to f/u for outpatient clearance for future surgery wbat Status: Acute
[2018-03-21] MEDS ORDERED: DEXTROSE 31 GM ORAL.SUSP PO PRN ×2 (10:11→15:08)
[2018-03-21] MEDS ORDERED: DEXTROSE 50% 50 ML VIAL IV PRN ×2 (10:11→15:08)
[2018-03-21] MEDS: diphenhydrAMINE 25 MG CAPSULE PO PRN ×2 (10:13→20:48)
[2018-03-21] MEDS ORDERED: INSULIN LISPRO 1 UNIT/0.01 ML UNIT SQ SCH (11:30)
--- NOTE | 2018-03-21 12:52 | Ultrasound Report ---
CLINICAL INFORMATION: Bulging of the anterior abdominal wall TECHNIQUE: Routine soft tissue ultrasound with and without Valsalva maneuver COMPARISON: None. FINDINGS: Entire anterior abdominal wall was scanned. There is no demonstrable hernia. No discrete soft tissue mass. Focal abnormality. IMPRESSION: Negative ultrasound of the anterior abdominal wall Interpreted and Authenticated by: Sergio Angulo 03/21/18
--- NOTE | 2018-03-21 13:14 | Internal Med Progress Note ---
Medical - PN: Subj Patient information: Note initiated : 03/21/18 at 1:13 pm Service Date, if different from initiated Date: [] Patient: Buddy Marcus 87 y/o M admitted on 03/19/18 for Right Total Hip Arthroplasty. Chief Complaint: [] - Constitutional Vitals: Vital Signs Temp Pulse Resp BP Pulse Ox 97.5 F 75 19 119/68 97 03/21/18 12:01 03/21/18 11:07 03/21/18 13:08 03/21/18 12:01 03/21/18 12:01 Period Temp Pulse Resp BP Sys/Berg Pulse Ox Last 24 Hr 97.5 F-99.4 F 71-78 12-23 83-129/37-74 93-99 Intake and Output 03/20/18 03/21/18 03/21/18 21:59 05:59 13:59 Intake Total 640 / 640 450 / 450 830 / 830 Output Total 265 / 265 475 / 475 445 / 445 Balance 375 / 375 -25 / -25 385 / 385 Weight 222 lb 1.6 oz Intake & Output: Intake & Output 03/20/18 03/21/18 03/21/18 21:59 05:59 13:59 Intake Total 640 / 640 450 / 450 830 / 830 Output Total 265 / 265 475 / 475 445 / 445 Balance 375 / 375 -25 / -25 385 / 385 Weight 222 lb 1.6 oz Intake: IV 200 / 200 Oral 640 / 640 250 / 250 830 / 830 Output: Urine Catheter Amount 265 / 265 475 / 475 445 / 445 Other: Meal Dinner Lunch Percent of Meal Consumed 75% 75% Feeding Ability Assist with Tray Set Up Assist with Tray Set Up Medical - PN: Obj Da - Labs CBC & Chem 7: 03/21/18 03:45 03/21/18 03:45 Labs: Abnormal Lab Results 03/21/18 03/21/18 03/20/18 03:45 03:45 10:31 WBC RBC 3.49 L Hgb 11.1 L Hct 33.3 L RDW 15.4 H Gran % 81.2 H Lymph % (Auto) 8.9 L Gran # Lymph # (Auto) 0.8 L ESR PT D-Dimer Sodium 131 L Chloride 95 L Glucose 148 H AST ALT Troponin T NT-Pro-B Natriuret Pep 2555.0 H Albumin 3.1 L TSH Urine Protein Urine Occult Blood Ur Leukocyte Esterase Urine RBC Urine WBC 03/20/18 03/20/18 03/20/18 10:31 03:45 03:45 WBC RBC Hgb Hct RDW Gran % Lymph % (Auto) Gran # Lymph # (Auto) ESR PT D-Dimer Sodium Chloride Glucose 142 H AST ALT Troponin T 0.08 H* 0.08 H* NT-Pro-B Natriuret Pep Albumin TSH Urine Protein Urine Occult Blood Ur Leukocyte Esterase Urine RBC Urine WBC 03/20/18 03/19/18 03/19/18 03:45 19:40 18:38 WBC RBC 3.55 L Hgb 11.2 L Hct 33.7 L RDW 15.3 H Gran % Lymph % (Auto) 13.6 L Gran # Lymph # (Auto) 0.9 L ESR PT D-Dimer 12.13 H Sodium Chloride Glucose AST ALT Troponin T NT-Pro-B Natriuret Pep Albumin TSH Urine Protein 100 A Urine Occult Blood >=1.0 A Ur Leukocyte Esterase 75 A Urine RBC > 182 H Urine WBC 70 H 03/19/18 03/19/18 03/19/18 18:38 18:38 18:38 WBC 11.8 H RBC 3.73 L Hgb 11.6 L Hct 35.6 L RDW 15.1 H Gran % 87.1 H Lymph % (Auto) 7.6 L Gran # 10.3 H Lymph # (Auto) 0.9 L ESR 31 H PT 14.7 H D-Dimer Sodium Chloride 95 L Glucose 152 H AST 50 H ALT 44 H Troponin T NT-Pro-B Natriuret Pep 2642.0 H Albumin TSH 9.02 H Urine Protein Urine Occult Blood Ur Leukocyte Esterase Urine RBC Urine WBC 03/19/18 10:00 WBC RBC Hgb Hct RDW Gran % Lymph % (Auto) Gran # Lymph # (Auto) ESR PT D-Dimer Sodium Chloride Glucose AST ALT Troponin T NT-Pro-B Natriuret Pep Albumin TSH Urine Protein Urine Occult Blood 0.03 A Ur Leukocyte Esterase 25 A Urine RBC 19 H Urine WBC 8 H Meds: Medications Acetaminophen (Tylenol) 650 mg PO Q4-6HP PRN PRN Reason: PAIN/FEVER > 101 Last Admin: 03/21/18 07:17 Dose: 650 mg Acetaminophen/Codeine Phosphate (Tylenol #3) 1 tab PO Q6HP PRN PRN Reason: PAIN LEVEL 3-6 Last Admin: 03/21/18 09:23 Dose: 1 tab Albuterol Sulfate (Ventolin) 2.5 mg NEB Q2HP PRN PRN Reason: Dyspnea Last Admin: 03/19/18 20:40 Dose: 2.5 mg Albuterol/Ipratropium (Duoneb) 3 ml NEB Q4HRT [facility] Last Admin: 03/21/18 11:05 Dose: 3 ml Allopurinol (Zylopriim) 300 mg PO DAILY [facility] Last Admin: 03/21/18 08:31 Dose: 300 mg Atorvastatin Calcium (Lipitor) 20 mg PO HS [facility] Last Admin: 03/20/18 20:20 Dose: 20 mg Budesonide (Pulmicort) 0.5 mg NEB Q12 [facility] Last Admin: 03/21/18 07:29 Dose: 0.5 mg Dextrose (Dextrose 50%) 0 ml IV UD PRN PRN Reason: Hypoglycemia Diagnostic Test (Pha) (Accu-Chek) 1 each FS ACHS [facility] Last Admin: 03/21/18 07:24 Dose: 1 each Diphenhydramine HCl (Benadryl) 25 mg PO Q6HP PRN PRN Reason: Allergic Symptoms Last Admin: 03/21/18 10:13 Dose: 25 mg Docusate Sodium (Colace) 100 mg PO BID [facility] Last Admin: 03/21/18 08:31 Dose: 100 mg Furosemide (Lasix) 20 mg IV DAILY [facility] Last Admin: 03/21/18 08:31 Dose: 20 mg Gabapentin (Neurontin) 100 mg PO BID [facility] Last Admin: 03/21/18 08:31 Dose: 100 mg Glucose (Insta-Glucose) 15 gm PO PRN PRN PRN Reason: Hypoglycemia Ciprofloxacin (Cipro) 400 mg in 200 mls @ 200 mls/hr IV Q12H [facility] Last Admin: 03/21/18 09:22 Dose: 50 mls/hr Insulin Human Lispro (Humalog) 0 unit SQ ACHS [facility] PRN Reason: Protocol Last Admin: 03/21/18 12:19 Dose: 3 unit Lidocaine (Lidoderm) 1 patch TOPICAL DAILY@1000 [facility] Last Admin: 03/21/18 09:21 Dose: 1 patch Lidocaine (Lidoderm) 0 patch TOPICAL HS@2200 [facility] Last Admin: 03/20/18 22:22 Dose: Not Given Metformin HCl (Glucophage) 1,000 mg PO BIDCC [facility] Last Admin: 03/21/18 07:25 Dose: 1,000 mg Metoprolol Tartrate (Lopressor) 25 mg PO BID [facility] Last Admin: 03/21/18 08:31 Dose: 25 mg Ondansetron HCl (Zofran) 4 mg IV Q6HP PRN PRN Reason: Nausea And Vomiting Pantoprazole Sodium (Protonix) 40 mg PO QAMAC [facility] Last Admin: 03/21/18 06:59 Dose: 40 mg Sodium Chloride (Saline Flush) 10 ml IV Q8 [facility] Last Admin: 03/21/18 08:31 Dose: 10 ml Medical - PN: A/P - Time Spent With Patient Total time spent is greater than 50% in coordination of care (as documented) at patient's floor/unit and/or counseling patient: (1) Hypotensive episode Status: Acute Current Visit: Yes (2) CHF (congestive heart failure) Status: Acute Current Visit: Yes (3) A-fib Status: Acute Current Visit: Yes (4) UTI (urinary tract infection) Status: Acute Current Visit: Yes Medical - PN: Qual - VTE Deep Vein Thrombosis/Pulmonary Embolism Present on Admission: No
[2018-03-21] MEDS ORDERED: ALBUTEROL SULFATE 2.5 MG/3 ML NEBULIZER NEB PRN (15:08)
[2018-03-21] MEDS ORDERED: ONDANSETRON 4 MG/2 ML VIAL IV PRN (15:08)
[2018-03-21] MEDS ORDERED: ACETAMINOPHEN 325 MG TABLET PO PRN (15:08)
[2018-03-21] MEDS: INSULIN LISPRO 1 UNIT/0.01 ML UNIT SQ SCH ×2 (17:06→20:46)
[2018-03-21] MEDS ORDERED: CAPSAICIN 0.025% CREAM.TOP 60GM TOPICAL PRN (18:37)
[2018-03-21] MEDS ORDERED: FUROSEMIDE 40 MG/4 ML VIAL IV ONE ×2 (19:37→20:23)
[2018-03-21] MEDS ORDERED: FUROSEMIDE 20 MG/2 ML VIAL IV ONE (20:22)
[2018-03-21] MEDS: IBUPROFEN 800 MG TABLET PO PRN (20:47)
[2018-03-21] MEDS ORDERED: ATORVASTATIN 20 MG TABLET PO SCH (21:00)
[2018-03-21] MEDS ORDERED: LIDOCAINE PATCH TOPICAL SCH (22:00)
[2018-03-22] MEDS: IPRATROPIUM/ALBUTEROL 3 ML AMPUL.NEB NEB SCH ×6 (03:03→23:26)
[2018-03-22] MEDS: ACETAMINOPHEN W/CODEINE #3 1 TABLET PO PRN ×4 (03:11→22:05)
[2018-03-22] MEDS: 0.9 % SODIUM CHLORIDE 10 ML SYRINGE IV SCH ×5 (05:57→21:28)
[2018-03-22 06:09] LABS: Basophils # (Auto) 0 K/mcL (0.0-0.3); Basophils % (Auto) 0.1 % (0.0-2.0); Eosinophils # (Auto) 0.2 K/mcL (0.0-0.7); Eosinophils % (Auto) 2.7 % (0.0-7.0); Lymphocytes # (Auto) 0.8 K/mcL (1.5-4.8); Lymphocytes % (Auto) 8.4 % (15.5-49.0); Mean Cell Volume 94.9 fL (80.0-100.0); Mean Corpuscular HGB Conc 33.2 g/dL (31.0-36.0); Mean Corpuscular Hemoglobin 31.5 pg (26.0-34.0); Monocytes # (Auto) 0.6 K/mcL (0.1-0.9); Monocytes % (Auto) 6.8 % (1.0-12.0); Platelet Count 254 K/mcL (140-440); RBC 3.57 M/mcL (4.50-5.90); Red Cell Distribution Width 15.3 % (11.5-14.5)
[2018-03-22 06:25] LABS: ALT/SGPT 25 U/l (0-40); Albumin 3.4 gm/dL (3.2-5.2); Albumin/Globulin Ratio 1.1 (1.0-2.3); Alkaline Phosphatase 100 U/L (39-117); Blood Urea Nitrogen 23 mg/dl (8-23)
[2018-03-22] MEDS: BUDESONIDE 0.5 MG/2 ML AMPUL.NEB NEB SCH ×2 (07:16→20:06)
[2018-03-22] MEDS ORDERED: PANTOPRAZOLE 40 MG TABLET PO SCH (07:30)
[2018-03-22] MEDS: metFORMIN 500 MG TABLET PO SCH ×2 (07:34→17:44)
[2018-03-22] MEDS: INSULIN LISPRO 1 UNIT/0.01 ML UNIT SQ SCH ×4 (07:34→20:57)
[2018-03-22] MEDS: IBUPROFEN 800 MG TABLET PO PRN ×2 (07:35→13:36)
--- NOTE | 2018-03-22 08:30 | Internal Med Progress Note ---
Medical - PN: Subj Patient information: Note initiated : 03/22/18 at 8:30 am Service Date, if different from initiated Date: [] Patient: Buddy Marcus 87 y/o M admitted on 03/19/18 for Right Total Hip Arthroplasty. Chief Complaint: [] - Constitutional Vitals: Vital Signs Temp Pulse Resp BP Pulse Ox 98.9 F 80 16 124/69 91 03/22/18 00:00 03/22/18 07:30 03/22/18 07:30 03/22/18 04:00 03/22/18 07:30 Period Temp Pulse Resp BP Sys/Berg Pulse Ox Last 24 Hr 97.5 F-98.9 F 70-83 13-23 110-133/53-71 91-98 Intake and Output 03/21/18 03/22/18 03/22/18 21:59 05:59 13:59 Intake Total 630 / 630 300 / 300 Output Total 700 / 700 300 / 300 Balance -70 / -70 0 / 0 Weight 225 lb Intake & Output: Intake & Output 03/21/18 03/22/18 03/22/18 21:59 05:59 13:59 Intake Total 630 / 630 300 / 300 Output Total 700 / 700 300 / 300 Balance -70 / -70 0 / 0 Weight 225 lb Intake: IV 200 / 200 Oral 630 / 630 100 / 100 Output: Urine Catheter Amount 700 / 700 300 / 300 Other: Meal HS snack Percent of Meal Consumed 100% Feeding Ability Independent Medical - PN: Obj Da - Labs CBC & Chem 7: 03/22/18 03:30 03/22/18 03:30 Labs: Abnormal Lab Results 03/22/18 03/22/18 03/21/18 03:30 03:30 03:45 WBC RBC 3.57 L Hgb 11.2 L Hct 33.9 L RDW 15.3 H Gran % 82.0 H Lymph % (Auto) 8.4 L Gran # Lymph # (Auto) 0.8 L ESR PT D-Dimer Sodium 127 L 131 L Chloride 89 L 95 L Glucose 134 H 148 H AST ALT Troponin T NT-Pro-B Natriuret Pep Albumin 3.1 L TSH Urine Protein Urine Occult Blood Ur Leukocyte Esterase Urine RBC Urine WBC 03/21/18 03/20/18 03/20/18 03:45 10:31 10:31 WBC RBC 3.49 L Hgb 11.1 L Hct 33.3 L RDW 15.4 H Gran % 81.2 H Lymph % (Auto) 8.9 L Gran # Lymph # (Auto) 0.8 L ESR PT D-Dimer Sodium Chloride Glucose AST ALT Troponin T 0.08 H* NT-Pro-B Natriuret Pep 2555.0 H Albumin TSH Urine Protein Urine Occult Blood Ur Leukocyte Esterase Urine RBC Urine WBC 03/20/18 03/20/18 03/20/18 03:45 03:45 03:45 WBC RBC 3.55 L Hgb 11.2 L Hct 33.7 L RDW 15.3 H Gran % Lymph % (Auto) 13.6 L Gran # Lymph # (Auto) 0.9 L ESR PT D-Dimer Sodium Chloride Glucose 142 H AST ALT Troponin T 0.08 H* NT-Pro-B Natriuret Pep Albumin TSH Urine Protein Urine Occult Blood Ur Leukocyte Esterase Urine RBC Urine WBC 03/19/18 03/19/18 03/19/18 19:40 18:38 18:38 WBC RBC Hgb Hct RDW Gran % Lymph % (Auto) Gran # Lymph # (Auto) ESR PT D-Dimer 12.13 H Sodium Chloride 95 L Glucose 152 H AST 50 H ALT 44 H Troponin T NT-Pro-B Natriuret Pep 2642.0 H Albumin TSH 9.02 H Urine Protein 100 A Urine Occult Blood >=1.0 A Ur Leukocyte Esterase 75 A Urine RBC > 182 H Urine WBC 70 H 03/19/18 03/19/18 03/19/18 18:38 18:38 10:00 WBC 11.8 H RBC 3.73 L Hgb 11.6 L Hct 35.6 L RDW 15.1 H Gran % 87.1 H Lymph % (Auto) 7.6 L Gran # 10.3 H Lymph # (Auto) 0.9 L ESR 31 H PT 14.7 H D-Dimer Sodium Chloride Glucose AST ALT Troponin T NT-Pro-B Natriuret Pep Albumin TSH Urine Protein Urine Occult Blood 0.03 A Ur Leukocyte Esterase 25 A Urine RBC 19 H Urine WBC 8 H Meds: Medications Acetaminophen (Tylenol) 650 mg PO Q4-6HP PRN PRN Reason: PAIN/FEVER > 101 Acetaminophen/Codeine Phosphate (Tylenol #3) 1 tab PO Q6HP PRN PRN Reason: PAIN LEVEL 3-6 Last Admin: 03/22/18 03:11 Dose: 1 tab Albuterol Sulfate (Ventolin) 2.5 mg NEB Q2HP PRN PRN Reason: Dyspnea Albuterol/Ipratropium (Duoneb) 3 ml NEB Q4HRT [facility] Last Admin: 03/22/18 07:16 Dose: 3 ml Allopurinol (Zylopriim) 300 mg PO DAILY [facility] Atorvastatin Calcium (Lipitor) 20 mg PO HS [facility] Last Admin: 03/21/18 20:47 Dose: 20 mg Budesonide (Pulmicort) 0.5 mg NEB Q12 [facility] Last Admin: 03/22/18 07:16 Dose: 0.5 mg Capsaicin (Zostrix) 1 dose TOPICAL QIDP PRN PRN Reason: Muscle Pain Dextrose (Dextrose 50%) 0 ml IV UD PRN PRN Reason: Hypoglycemia Diagnostic Test (Pha) (Accu-Chek) 1 each FS ACHS [facility] Last Admin: 03/22/18 07:26 Dose: 1 each Diphenhydramine HCl (Benadryl) 25 mg PO Q6HP PRN PRN Reason: Allergic Symptoms Last Admin: 03/21/18 20:48 Dose: 25 mg Docusate Sodium (Colace) 100 mg PO BID [facility] Last Admin: 03/21/18 20:46 Dose: 100 mg Furosemide (Lasix) 20 mg IV DAILY [facility] Gabapentin (Neurontin) 100 mg PO BID [facility] Last Admin: 03/21/18 20:46 Dose: 100 mg Glucose (Insta-Glucose) 15 gm PO PRN PRN PRN Reason: Hypoglycemia Ciprofloxacin (Cipro) 400 mg in 200 mls @ 200 mls/hr IV Q12H [facility] Last Infusion: 03/22/18 01:45 Dose: Infused Ibuprofen (Motrin) 800 mg PO Q8HP PRN PRN Reason: Muscle Pain Last Admin: 03/22/18 07:35 Dose: 800 mg Insulin Human Lispro (Humalog) 0 unit SQ ACHS [facility] PRN Reason: Protocol Last Admin: 03/22/18 07:34 Dose: 1 unit Lidocaine (Lidoderm) 1 patch TOPICAL DAILY@1000 [facility] Lidocaine (Lidoderm) 0 patch TOPICAL HS@2200 [facility] Last Admin: 03/21/18 22:00 Dose: 1 patch [facility] Last Admin: 03/22/18 07:34 Dose: 1,000 mg Metoprolol Tartrate (Lopressor) 25 mg PO BID [facility] Last Admin: 03/21/18 20:47 Dose: 25 mg Ondansetron HCl (Zofran) 4 mg IV Q6HP PRN PRN Reason: Nausea And Vomiting Pantoprazole Sodium (Protonix) 40 mg PO QAMAC [facility] Last Admin: 03/22/18 07:26 Dose: 40 mg Sodium Chloride (Saline Flush) 10 ml IV Q8 [facility] Last Admin: 03/22/18 05:57 Dose: 10 ml Medical - PN: A/P - Time Spent With Patient Total time spent is greater than 50% in coordination of care (as documented) at patient's floor/unit and/or counseling patient: (1) Hypotensive episode Status: Acute Current Visit: Yes (2) CHF (congestive heart failure) Status: Acute Current Visit: Yes (3) A-fib Status: Acute Current Visit: Yes (4) UTI (urinary tract infection) Status: Acute Current Visit: Yes Medical - PN: Qual - VTE Deep Vein Thrombosis/Pulmonary Embolism Present on Admission: No
[2018-03-22] MEDS: CIPROFLOXACIN 400 MG/200 ML BAG IV SCH (08:40)
[2018-03-22] MEDS: GABAPENTIN 100 MG CAPSULE PO SCH ×2 (08:42→20:56)
[2018-03-22] MEDS: diphenhydrAMINE 25 MG CAPSULE PO PRN (08:43)
[2018-03-22] MEDS: DOCUSATE SODIUM 100 MG CAPSULE PO SCH ×2 (08:43→20:56)
[2018-03-22] MEDS: METOPROLOL TARTRATE 25 MG TABLET PO SCH (08:48)
[2018-03-22] MEDS ORDERED: FUROSEMIDE 20 MG/2 ML VIAL IV SCH (09:00)
[2018-03-22] MEDS ORDERED: ALLOPURINOL 300 MG TABLET PO SCH (09:00)
[2018-03-22] MEDS ORDERED: LIDOCAINE PATCH TOPICAL SCH ×2 (10:00→22:00)
[2018-03-22] MEDS ORDERED: CAPSAICIN 0.025% CREAM.TOP 60GM TOPICAL PRN (18:35)
[2018-03-22] MEDS ORDERED: DEXTROSE 31 GM ORAL.SUSP PO PRN (18:35)
[2018-03-22] MEDS ORDERED: diphenhydrAMINE 25 MG CAPSULE PO PRN (18:35)
[2018-03-22] MEDS ORDERED: IBUPROFEN 800 MG TABLET PO PRN (18:35)
[2018-03-22] MEDS ORDERED: DEXTROSE 50% 50 ML VIAL IV PRN (18:35)
[2018-03-22] MEDS ORDERED: ALBUTEROL SULFATE 2.5 MG/3 ML NEBULIZER NEB PRN (18:35)
[2018-03-22] MEDS ORDERED: ACETAMINOPHEN 325 MG TABLET PO PRN (18:35)
[2018-03-22] MEDS ORDERED: ONDANSETRON 4 MG/2 ML VIAL IV PRN (18:35)
[2018-03-22] MEDS: METOPROLOL SUCCINATE 50 MG TAB.XL.24H PO SCH (20:56)
[2018-03-22] MEDS: CIPROFLOXACIN 500 MG TABLET PO SCH (20:56)
[2018-03-22] MEDS ORDERED: ATORVASTATIN 20 MG TABLET PO SCH (21:00)
[2018-03-23] MEDS: IPRATROPIUM/ALBUTEROL 3 ML AMPUL.NEB NEB SCH ×4 (03:42→15:15)
[2018-03-23 06:08] LABS: Basophils # (Auto) 0 K/mcL (0.0-0.3); Basophils % (Auto) 0.3 % (0.0-2.0); Eosinophils # (Auto) 0.3 K/mcL (0.0-0.7); Eosinophils % (Auto) 3.9 % (0.0-7.0); Granulocytes % (Auto) 79.6 % (38.0-78.0); Lymphocytes # (Auto) 0.7 K/mcL (1.5-4.8); Lymphocytes % (Auto) 8.6 % (15.5-49.0); Mean Cell Volume 95.1 fL (80.0-100.0); Mean Corpuscular HGB Conc 33.4 g/dL (31.0-36.0); Mean Corpuscular Hemoglobin 31.7 pg (26.0-34.0); Monocytes # (Auto) 0.6 K/mcL (0.1-0.9); Monocytes % (Auto) 7.6 % (1.0-12.0); Platelet Count 249 K/mcL (140-440); RBC 3.53 M/mcL (4.50-5.90); Red Cell Distribution Width 14.8 % (11.5-14.5)
[2018-03-23 06:29] LABS: ALT/SGPT 20 U/l (0-40); Albumin 3.3 gm/dL (3.2-5.2); Alkaline Phosphatase 84 U/L (39-117); Blood Urea Nitrogen 29 mg/dl (8-23)
[2018-03-23] MEDS: 0.9 % SODIUM CHLORIDE 10 ML SYRINGE IV SCH ×2 (06:41→13:31)
[2018-03-23] MEDS: ACETAMINOPHEN W/CODEINE #3 1 TABLET PO PRN (07:02)
[2018-03-23] MEDS ORDERED: PANTOPRAZOLE 40 MG TABLET PO SCH (07:30)
[2018-03-23] MEDS: INSULIN LISPRO 1 UNIT/0.01 ML UNIT SQ SCH ×2 (07:56→13:29)
[2018-03-23] MEDS: CIPROFLOXACIN 500 MG TABLET PO SCH (07:57)
[2018-03-23] MEDS: GABAPENTIN 100 MG CAPSULE PO SCH (07:57)
[2018-03-23] MEDS: DOCUSATE SODIUM 100 MG CAPSULE PO SCH (07:57)
[2018-03-23] MEDS: METOPROLOL SUCCINATE 50 MG TAB.XL.24H PO SCH (07:57)
[2018-03-23] MEDS ORDERED: metFORMIN 500 MG TABLET PO SCH (08:00)
[2018-03-23] MEDS: BUDESONIDE 0.5 MG/2 ML AMPUL.NEB NEB SCH (08:25)
[2018-03-23] MEDS ORDERED: FUROSEMIDE 20 MG/2 ML VIAL IV SCH (09:00)
[2018-03-23] MEDS ORDERED: ALLOPURINOL 300 MG TABLET PO SCH (09:00)
[2018-03-23] MEDS ORDERED: LIDOCAINE PATCH TOPICAL SCH (10:00)
--- NOTE | 2018-03-23 15:02 | Discharge Summary ---
Medical - DS: Prov Patient information: Note initiated : 03/23/18 at 2:40 pm Service Date, if different from initiated Date: [] Patient: Buddy Marcus 87 y/o M admitted on 03/19/18 for Right Total Hip Arthroplasty. Chief Complaint: [] Date of admission: 03/19/18 09:31 [facility] Primary care physician: Prasanna Cerna Admitting clinician: Sergio Gillis Attending physician on discharge: Rhett Marcelino Medical - DS: Meds - Discharge Medications Prescriptions: Aspirin [Aspirin EC] 81 mg PO DAILY #20 tablet. Budesonide [Pulmicort] 90 mcg IH Q12 #1 inhaler Capsaicin [Zostrix] 1 dose TOPICAL QIDP PRN #1 cream.top PRN Reason: Muscle Pain Ciprofloxacin [Cipro] 500 mg PO BID #7 tab Furosemide [Lasix] 60 mg PO DAILYP PRN #20 tab PRN Reason: Edema Ibuprofen [Motrin] 800 mg PO Q8HP PRN #10 tab PRN Reason: Muscle Pain Lidocaine [Lidoderm] 1 patch TOPICAL DAILY@1000 #10 patch Metoprolol Succinate [Toprol Xl] 50 mg PO DAILY #20 tab.xl.24h Active and Home Medications: Home Medications Allopurinol [Zyloprim] 300 mg PO DAILY 08/05/17 [History Confirmed 03/19/18 Last Taken 03/18/18] Atorvastatin [Lipitor] 20 mg PO DAILY 08/05/17 [History Confirmed 03/19/18 Last Taken 03/18/18] Gabapentin [Neurontin] 100 mg PO BID 08/05/17 [History Confirmed 03/19/18 Last Taken 03/18/18] metFORMIN [Glucophage] 1,000 mg PO BIDCC 08/05/17 [History Confirmed 03/19/18 Last Taken 03/18/18] Furosemide [Lasix] 20 mg PO DAILYP PRN 03/15/18 [History Confirmed 03/19/18 Last Taken 03/18/18] Metoprolol Tartrate [Lopressor] 25 mg PO BID 03/15/18 [History Confirmed Last Taken 03/18/18] Medical - DS: Hosp Hospital course: Mr. Marcus is a 87 year old M Mr. Marcus is a 87 year old diabetic male with significant PMH of atrial fibrillation, diabetic peripheral neuropathy, hyperlipidemia, gout, avascular necrosis of hip. He is scheduled to have surgical right total hip replacement replacement arthroplasty by Dr. Gillis, and has just coded CPR for hypotensive bradycardia during spinal block anesthesia. Stat consultation requested by Dr. Gillis to assist. Currently he is in the ICU, intubated, begins awakening from the event. Apparently he was given Percocet, fentanyl, propofol during the procedure, and went in to hypotensive with bradycardia, pressor was given, and his heart stop, immediately CPR began, and he was intubated per coding protocol. Subsequently he regained his rhythm, pulse, blood pressure and transferred to ICU. He is now waking up. His EKG showed atrial fibrillation with controlled rate, portable chest with cardiomegaly slight fluid overload. He was extubated and changed to BiPAP without any difficulties, IV Lasix diuresis was given, serial cardiac enzymes were negative for cardiac events or [place]. He has history of paroxysmal atrial fibrillation, He continued to improve with IV diuresis however he appears somewhat noncompliant with fluid restriction. His suffer rib cage pain from the CPR, which responds to Lidoderm patch, ibuprofen, Tylenol, and breakthrough with a few Tylenol No. 3. His surgery had been canceled, although he participated in PT, he has significant difficulty with his right hip arthritis, and would benefit from SNF PT OT rehabilitation. During his hypotensive event, he appeared to have a bulging abdominal mass, suggesting AAA, abdominal hernia, etc. abdominal ultrasound showed no evidence of hernia or ventral hernia. He should follow with his PCP to consider a CT angiogram to further evaluate abdominal abnormalities. I spoke with Dr. Gillis, who want him to have rehabilitation and follow with his PCP and baseboard heating installer to further evaluate his cardiac status before rescheduling him for surgical repair He should follow with his PCP (Dr. Prasanna Cerna) in 1-2 weeks, follow-up labs in for 5 days, results to Dr. Cerna for review and medication changes. He should follow with his baseboard heating installer for further preop evaluation, and Dr. Gillis for further evaluation and treatment of right hip arthroplasty. Discharge diagnosis: CHF (congestive heart failure) Secondary discharge diagnosis: Hypotensive episode Paroxysmal A. fib UTI, and platelet epicillin resistant Klebsiella oxytoca and Proteus mirabilis. Others: DM type II, diabetic neuropathy, CAD status post 2 stents 2006, hyperlipidemia, gout, history of colon CA status post treatment. - Time Spent with Patient Total time spent providing and/or coordinating discharge services: Greater than 30 minutes Medical - DS: Exam - Constitutional Vitals: Vital Signs Temp Pulse Pulse Resp BP BP Pulse Ox 03/23/18 11:40 98.5 F 75 20 139/70 91 03/23/18 06:45 98.5 F 77 20 144/72 90 03/23/18 04:00 97.9 F 70 20 122/72 96 03/23/18 01:25 93 03/23/18 00:00 98.2 F 71 22 107/56 91 03/22/18 23:25 74 18 03/22/18 20:10 84 18 03/22/18 20:00 97.5 F 74 22 108/65 90 03/22/18 15:57 97.9 F 20 121/68 94 03/22/18 15:15 98 H 20 Intake and Output 03/23/18 03/23/18 03/23/18 05:59 13:59 21:59 Intake Total 240 / 240 240 / 240 Output Total 825 / 825 950 / 950 Balance -585 / -585 -710 / -710 Intake: Oral 240 / 240 240 / 240 Output: Urine Catheter Amount 825 / 825 950 / 950 Other: Meal Breakfast Percent of Meal Consumed 100% General appearance: no acute distress, obese - Head Head exam: Present: atraumatic, normocephalic - Eye Eye exam: Present: EOMI Pupils: Present: normal accommodation, PERRL - ENT ENT exam: Present: mucous membranes moist - Neck Neck exam: Absent: lymphadenopathy, meningismus - Respiratory Respiratory exam: Present: CTAB. Absent: accessory muscle use - Cardiovascular Cardiovascular exam: Present: +S1, +S2. Absent: gallop, rubs - GI/Abdominal GI/Abdominal exam: Present: normal bowel sounds, soft. Absent: guarding, rebound, tenderness - Extremities Exam Extremities exam: Present: full ROM. Absent: pedal edema, tenderness - Neurological Exam Neurological exam: Present: alert, CN II-XII intact, oriented X3 - Skin Skin exam: Present: dry, intact Medical - DS: Data Procedures and tests throughout hospitalization: 2-D echo 03/19/18 Preliminary report: Mild to moderate concentric LVH, mildly reduced left ventricular systolic function, mild dilated RV, mildly dilated LA, mildly dilated RA, abnormal IVC inspiratory collapse less than 50%. Abdominal ultrasound 03/21/18, IMPRESSION: Negative ultrasound of the anterior abdominal wall Interpreted and Authenticated by: Sergio Angulo 03/21/18 Labs on day of discharge: Labs from last 24 hours 03/23/18 03/23/18 04:45 04:45 WBC 8.2 RBC 3.53 L Hgb 11.2 L Hct 33.6 L MCV 95.1 MCH 31.7 MCHC 33.4 RDW 14.8 H Plt Count 249 MPV 8.6 Gran % 79.6 H Lymph % (Auto) 8.6 L [place] % (Auto) 7.6 Eos % (Auto) 3.9 Baso % (Auto) 0.3 Gran # 6.5 Lymph # (Auto) 0.7 L [place] # (Auto) 0.6 Eos # (Auto) 0.3 Baso # (Auto) 0 Sodium 129 L Potassium 4.5 Chloride 92 L Carbon Dioxide 25 Anion Gap 12.0 BUN 29 H Creatinine 1.0 GFR Calculation 66 Glucose 137 H Calcium 9.9 Total Bilirubin 0.7 AST 20 ALT 20 Alkaline Phosphatase 84 NT-Pro-B Natriuret Pep 5811.0 H Total Protein 6.5 Albumin 3.3 Globulin 3.2 Albumin/Globulin Ratio 1.0 Preliminary micro results at discharge 03/20/18 04:40 Blood Culture - Preliminary Blood 03/20/18 04:30 Blood Culture - Preliminary Blood Medical - DS: A/P - Patient/Caregiver Discharge Instructions Activity: as per physical therapy Diet: Cardiac, Low Fat, Consistent Carbohydrate Additional Instructions: Fluid restriction: Not to exceed 1.3 L fluid intake per day Lab work on 03/26/18: CMP CBC magnesium phosphorus, results to PCP for review and make changes Follow with PCP Dr. Cerna in 1-2 weeks Other Amb Orders: OT Discharge Order Location: Determined By Patient Physical Therapy at Discharge - General Location: Determined By Patient Complete Blood Count Time Frame: 03/26/18, Location: Determined By Patient Comprehensive Metabolic Panel Time Frame: 03/26/18, Location: Determined By Patient Magnesium Time Frame: 03/26/18, Location: Determined By Patient Phosphorous Time Frame: 03/26/18, Location: Determined By Patient - Problem Maintenance (1) CHF (congestive heart failure) Status: Acute (2) Hypotensive episode Status: Acute (3) A-fib Status: Acute Comment: His metoprolol or Toprol-XL is crucial for rate control of his PAF, likely keep him in sinus rhythm, he should be at least on a baby aspirin (he reports some prior bleeding events long ago, details unknown.) (4) UTI (urinary tract infection) Status: Acute Comment: Finish 3 more days course of Cipro by mouth twice a day. - Follow up Plan Follow up with: Prasanna Cerna MD [Primary Care Provider] - (In 1-2 weeks, lab work on , results to Dr. Cerna for review and med changes) Disposition: Xfer SNF Prognosis: Fair Rehab Potential: Fair I certify that the patient requires SNF services: Yes (PT OT) Overall status at discharge: patient is progressing back to baseline Medical - DS: Qual - VTE Deep Vein Thrombosis/Pulmonary Embolism Present on Admission: No
== END 2018-03-23 16:30 | DRG 554 ==
LOC: MEDSUR 03-19 09:31 → ICU 03-19 17:22 → MEDSUR 03-22 17:42
PROVIDERS: ADMIT Orthopaedic Surgery Sports Medicine; ATTEND Orthopaedic Surgery Sports Medicine